=== PATIENT | male | born 1975 | race African-American/Black ===

== ENCOUNTER 2016-07-03 20:34 | Inpatient (IN) | payer OTHER ==
[~2016-07-03] VITALS: Ht 177.8 cm; Wt 98.2 kg
[~2016-07-03 20:34] MED LIST: AMLO-147 PO; CLON-379 PO; FURO-109 PO; MINO2.5T16 PO
[2016-07-03 21:15] VITALS: TEMP 98.1
[2016-07-03 21:28] LABS: ADD SCAN DIFF NO
[2016-07-03 21:30] LABS: ABNORMAL IP MESSAGE 1; HEMATOCRIT 33.6 % (42.0-52.0); HEMOGLOBIN 10.9 g/dl (14.0-18.0); MEAN CORPUSCULAR HEMOGLOBIN 28.3 pg (29.0-33.0); MEAN CORPUSCULAR HGB CONC 32.4 g/dl (32.0-37.0); MEAN CORPUSCULAR VOLUME 87.3 fl (82.0-101.0); PLATELET COUNT 76 10^3/UL (140-415); RED BLOOD COUNT 3.85 10^6/ul (4.70-6.10); RED CELL DISTRIBUTION WIDTH 18.3 % (11.5-14.5); WHITE BLOOD COUNT 11.7 10^3/ul (4.8-10.8)
[2016-07-03] MEDS ORDERED: FUROSEMIDE 40 MG INJ IV ONE (21:30)
[2016-07-03] MEDS ORDERED: METOPROLOL 100 MG TAB PO ONE (21:30)
--- NOTE | 2016-07-03 22:11 | RADRPT ---
PROCEDURE: XR Chest. CLINICAL INDICATION: Abdominal pain TECHNIQUE: AP view of the chest was obtained. COMPARISON: 03/11/2016 FINDINGS: Cardiac silhouette size is within normal limits. Thoracic aorta is tortuous. The lungs are clear. No pleural effusion or pneumothorax is identified. The visualized osseous structures are unremark able. IMPRESSION: No evidence of active cardiopulmonary disease. RPTAT: HESO .Tylor Rico MD, MD Date Time Electronically viewed and signed by .Tylor Rico MD, on 07/03/2016 22:10 .O/
[2016-07-03 22:12] LABS: ALBUMIN 3.3 g/dl (3.3-4.9)
[2016-07-03 22:13] LABS: POTASSIUM 3.4 mmol/L (3.5-5.1)
[2016-07-03 22:15] LABS: BILIRUBIN,INDIRECT 0.5 mg/dl (0-1.1); BILIRUBIN,TOTAL 0.5 mg/dl (0.2-1.3); CREATININE 7.72 mg/dl (0.61-1.24)
[2016-07-03 22:16] LABS: CALCIUM 8.1 mg/dl (8.4-10.2); TOTAL PROTEIN 6.6 g/dl (6.1-8.1)
[2016-07-03 22:40] LABS: TROPONIN-I 0.32 ng/ml (0.00-0.12)
[2016-07-03] MEDS ORDERED: ASPIRIN 325 MG TAB PO ONE (23:00)
[2016-07-03] MEDS ORDERED: ENALAPRILAT 1.25 MG INJ IV ONE (23:30)
[2016-07-03] MEDS ORDERED: NITROGLYCERIN (SL) 0.4 MG TAB SL ONE (23:30)
[2016-07-03] MEDS ORDERED: POTASSIUM CHLORIDE (SR) 20 MEQ TAB PO STA (23:31)
--- NOTE | 2016-07-03 23:33 | ERD ---
ER Documentation Chief Complaint Date/Time DATE: 07/03/16 TIME: 23:22 Chief Complaint hypertension, blurry of vision x 1 week, headaches x 3 days, blood in urine HPI 41-year-old man complains of gradual onset headache, and recent blurry vision with intermittent hematuria. Patient has a long history of poorly controlled hypertension and has been noncompliant with his medications. Patient denies slurred speech, no weakness in his arms or legs, no chest pain or shortness of breath, no abdominal pain, no vomiting or diarrhea. Patient states she has been out of his medications for 2-3 weeks, and states he has had recent increasing lower extremity edema. Patient denies exertional chest pain or claudication. Patient states he normally has headaches with blood pressure elevation. ROS All systems reviewed and are negative except as per history of present illness. Medications Home Meds Reported Medications Clonidine Hcl* (Clonidine Hcl*) 0.1 Mg Tab, 0.1 MG PO TID Y for ELEVATED BLOOD PRESSURE, TAB 03/11/16 Amlodipine Besylate* (Amlodipine Besylate*) 10 Mg Tablet, 10 MG PO DAILY, #30 TAB 03/11/16 Discontinued Reported Medications Minoxidil* (Lonitin*) 2.5 Mg Tab, 2.5 MG PO BID, TAB 03/11/16 Discontinued Scripts Furosemide* (Lasix*) 40 Mg Tablet, 40 MG PO DAILY for 5 Days, TAB Prov:MARIO SNOW MD 03/11/16 Allergies Allergies: Coded Allergies: No Known Allergy (Unverified , 07/03/16) PMhx/Soc History of hypertension, tobacco smoke Medical and Surgical Hx: pt denies Surgical Hx History of Surgery: No Anesthesia Reaction: No Hx Neurological Disorder: No Hx Respiratory Disorders: No Hx Cardiac Disorders: Yes (htn) Hx Psychiatric Problems: No Hx Miscellaneous Medical Probl: Yes (chronic kidney disease) Hx Alcohol Use: No Hx Substance Use: No Hx Tobacco Use: Yes (3 cig/day) Smoking Status: Current every day smoker FmHx Family History: No diabetes Physical Exam Vitals Vital Signs Date Time Temp Pulse Resp B/P Pulse Ox O2 Delivery O2 Flow Rate FiO2 07/03/16 23:48 82 183/111 07/03/16 23:00 92 20 213/173 98 07/03/16 22:16 110 18 232/178 97 Room Air 07/03/16 21:15 98.1 120 20 224/175 98 Room Air 07/03/16 20:37 98.6 129 20 271/176 98 Physical Exam GENERAL: Well-developed, well-nourished, well-hydrated, in no apparent distress , looks nontoxic in appearance HEENT: Moist mucous membranes, pink conjunctiva, no cervical spine tenderness or step-off deformities, no goiter, no jaundice or icterus, extraocular movements intact without pain. No submandibular induration, and no pharyngeal erythema NEURO: Alert and oriented 3, cranial nerves II through XII intact bilaterally, pupils equal round reactive to light, no focal deficits or facial asymmetry, sensation intact distally Strength 5/5 in upper and lower extremities bilaterally CARDIAC: Tachycardic and regular, no murmurs rubs or gallops LUNGS: Clear bilaterally no wheezing crackles or stridor ABDOMEN: Soft nontender, no guarding, no rigidity, no rebound, no psoas sign no obturator sign. Normoactive bowel sounds SKIN: Warm and dry to touch, no abrasions, contusions, or hematomas, no lacerations, no ecchymosis, no target lesions, and without ulcers EXTREMITIES: 1+ pitting edema in the lower extremities bilaterally, calves are bilaterally symmetrical, no Homans sign, no popliteal cord sign. Distal pulses equal and bilateral PSYCH: Normal affect without agitation or irritability Result Diagram: 07/03/16 2100 07/03/16 2100 Results 24 hrs Laboratory Tests Test 07/03/16 21:00 White Blood Count 11.710^3/ul Red Blood Count 3.8510^6/ul Hemoglobin 10.9g/dl Hematocrit 33.6% Mean Corpuscular Volume 87.3fl Mean Corpuscular Hemoglobin 28.3pg Mean Corpuscular Hemoglobin Concent 32.4g/dl Red Cell Distribution Width 18.3% Platelet Count 7610^3/UL Mean Platelet Volume fl Neutrophils % 76.0% Lymphocytes % 11.0% Monocytes % 10.0% Eosinophils % 2.0% Basophils % 1.0% Nucleated Red Blood Cells % 1.0/100WBC Neutrophils # 8.910^3/ul Lymphocytes # 1.310^3/ul Monocytes # 1.210^3/ul Eosinophils # 0.210^3/ul Basophils # 0.110^3/ul Differential Comment MANUAL DIFF Platelet Estimate PLT APPEAR DECREASED Anisocytosis 1+ Ovalocytes FEW Sodium Level 137mmol/L Potassium Level 3.4mmol/L Chloride Level 102mmol/L Carbon Dioxide Level 23mmol/L Anion Gap 15 Blood Urea Nitrogen 65mg/dl Creatinine 7.72mg/dl Glucose Level 108mg/dl Calcium Level 8.1mg/dl Total Bilirubin 0.5mg/dl Direct Bilirubin 0.00mg/dl Indirect Bilirubin 0.5mg/dl Aspartate Amino Transf (AST/SGOT) 59IU/L Alanine Aminotransferase (ALT/SGPT) 42IU/L Alkaline Phosphatase 71IU/L Troponin I 0.320ng/ml Total Protein 6.6g/dl Albumin 3.3g/dl Globulin 3.30g/dl Albumin/Globulin Ratio 1.00 Lipase 172U/L Current Medications Medications (Trade) Dose Ordered Sig/Carlos Route PRN Reason Start Time Stop Time Status Last Admin Dose Admin Metoprolol Tartrate (Lopressor) 100 mg ONCE ONCE PO 07/03/16 21:30 07/03/16 21:31 DC 07/03/16 21:34 Furosemide (Lasix) 40 mg ONCE ONCE IV 07/03/16 21:30 07/03/16 21:31 DC 07/03/16 21:34 Aspirin (Aspirin) 325 mg ONCE ONCE PO 07/03/16 23:00 07/03/16 23:01 DC 07/03/16 23:02 Enalaprilat (Vasotec Iv) 1.25 mg ONCE ONCE IV 07/03/16 23:30 07/03/16 23:31 DC 07/03/16 23:25 Nitroglycerin (Nitroglycerin (Sl Tab) 0.4 Mg) 2 tab ONCE ONCE SL 07/03/16 23:30 07/03/16 23:34 DC 07/03/16 23:37 Potassium Chloride (Klor-Con 20) 40 meq ONCE STAT PO 07/03/16 23:31 07/03/16 23:34 DC 07/03/16 23:38 Procedures/MDM IV line was established patient was placed on night monitor rhythm strip revealed a sinus tachycardia at 120 bpm with upright P and T waves. She was afebrile. EKG performed, read by me revealed a sinus tachycardia at 110 bpm, normal axis, narrow QRS complex, no concerning ST elevations or depressions, evidence of left ventricular hypertrophy in precordial leads and in lead I. One AP view of the chest performed, read by me reveals no acute infiltrates, normal mediastinum, sharp costophrenic and cardiac borders, no air under the diaphragm. Otherwise unremarkable chest x-ray. I administered metoprolol 100 mg p.o. for hypertension and tachycardia, and furosemide 40 mg IV 1. For continued hypertension patient received enalapril 1.25 mg IV. CBC revealed thrombocytopenia 76,000, electrolytes revealed hypokalemia and acute kidney injury with a BUN/creatinine of 65/7.7, liver function tests are normal, troponin positive at 0.3. Last year creatinine was 2.2. Cardiac critical Care: Time: 40 minutes, this was time separate from other procedures. Treatments/Evaluations: Close monitoring and treatment of unstable vital signs, cardiorespiratory, and neurologic status, while maintaining tight balance of fluid, respiratory, and cardiac interventions. Patient was also given nitroglycerin 0.4 mg sublingual 2 for continued hypertension. Patient's poorly controlled malignant hypertension has resulted in kidney injury , visual changes, headaches, and now a non-STEMI. Patient will be admitted to telemetry setting for continued medical management and cardiology consultation. Departure Diagnosis: Primary Impression: Hypertension Hypertension type: essential hypertension Qualified Code: I10 - Essential hypertension Additional Impressions: Hypertensive crisis Non-STEMI (non-ST elevated myocardial infarction) Acute kidney injury Hypertensive retinopathy Laterality: bilateral Qualified Code: H35.033 - Hypertensive retinopathy, bilateral Hypokalemia Condition: Serious MARIYA OSULLIVAN MD Jul 03, 2016 23:33
[2016-07-04] VITALS (9 sets, daily range): BP systolic 142–168; BP diastolic 91–109; PULSE 80–98; RESP 15–18; Ht 177.8 cm; Wt 98.2 kg
[2016-07-04 00:22] LABS: BASOPHIL # 0.1 10^3/ul (0.0-0.1); EOSINOPHILS # 0.2 10^3/ul (0.0-0.5); LYMPHOCYTES # 1.3 10^3/ul (0.8-2.9); MONOCYTE # 1.2 10^3/ul (0.3-0.9); NEUTROPHIL # 8.9 10^3/ul (1.6-7.5)
[2016-07-04 00:23] LABS: PLATELET ESTIMATE PLT APPEAR DECREASED
[2016-07-04 00:24] LABS: ANISOCYTOSIS 1+; OVALOCYTES FEW
[2016-07-04] MEDS ORDERED: hydrALAzine 20 MG INJ IV ONE (01:30)
[2016-07-04] MEDS ORDERED: NACL 0.9% 3 ML SYG IV SCH (06:30)
[2016-07-04] MEDS ORDERED: ALBUTEROL/IPRATROPIUM (NEB) 3 ML AMP HHN PRN (06:30)
[2016-07-04] MEDS ORDERED: ONDANSETRON 4 MG INJ IV PRN (06:30)
[2016-07-04] MEDS ORDERED: ACETAMINOPHEN 325 MG TAB PO PRN (06:30)
[2016-07-04] MEDS ORDERED: NITROGLYCERIN (SL) 0.4 MG TAB SL PRN (06:30)
--- NOTE | 2016-07-04 07:14 | HP ---
DATE OF ADMISSION: 07/03/2016 CHIEF COMPLAINT: Headache. HISTORY OF PRESENT ILLNESS: The patient is a 41-year-old male with history of hypertension and pumpman alec kidney disease who presented to the emergency department with a chief complaint of headache, int ermittent blurry vision. He said symptom have been going on for a few days, worsening over the past 2 days. He also reported seeing blood in his urine. He denied any chest pain, shortness of breath , fever, chills, nausea, or vomiting. When he presented to the ER, his blood pressure was severely elevated at 217/176 with a heart rate of 129. Laboratory value shows potassium of 3.4, BUN 65, crea tinine 7.7. Troponin was 0.32. WBC 11.7, hemoglobin 10.9, and platelet count 76. The patient was here in the ER three months ago, in March of 2016, and was complaining of lower extremity swellin g. At that time, his creatinine was only 2.1. When he was in the ER today, a chest x-ray was done which showed no active cardiopulmonary disease, and EKG shows no ST-T wave abnormalities. No head C T was done. He was given Lasix 40 mg IV, Lopressor 100 mg oral, Vasotec, 20 mg of IV hydralazine, a spirin, and nitroglycerin which brought his blood pressure down to around 185/110. Note that the linda folres has not been compliant with his blood pressure medications. REVIEW OF SYSTEMS: A 12-point review was performed and is negative except as mentioned in HPI. PAST MEDICAL HISTORY: As per HPI. PAST SURGICAL HISTORY: Denies. SOCIAL HISTORY: Smokes about 3 to 5 cigarettes per day. ALLERGIES: NO KNOWN DRUG ALLERGIES. HOME MEDICATION: 1. Clonidine. 2. Norvasc. PHYSICAL EXAMINATION: VITAL SIGNS: Currently, blood pressure 183/111, heart rate 82, respiratory rate 20, temperature 98. 1, oxygen saturation 98% on room air. GENERAL: The patient lying in bed, slightly sleepy but arousable, answering questions appropriately . HEENT: No obvious head deformity. Pupils reactive to light. Extraocular muscles intact. CARDIOVASCULAR: Regular rate and rhythm. No extra sounds. LUNGS: Clear. ABDOMEN: Soft, obese, nontender, nondistended. EXTREMITIES: Positive for bilateral lower extremity edema. NEUROLOGIC: No focal deficits. LABORATORY: Pertinent positive results as mentioned in the HPI. IMAGING: Chest x-ray with no active disease IMPRESSION: 1. Hypertensive emergency. 2. Headache/blurry vision, secondary to above. 3. Stage V chronic kidney disease. 4. Normocytic anemia, likely secondary to anemia of chronic disease. 5. Thrombocytopenia. 6. Elevated troponin, likely demand ischemia. 7. Leukocytosis, likely stress-induced. PLAN: Continue telemetry monitoring. I will order a head CT for him given his presentation of head ache and severely elevated blood pressure. We will trend his troponin. We will avoid nephrotoxins and renally dose all medications. We will obtain a renal ultrasound and place a nephrology consult. 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 As far as his hematu arabella is concerned, it could be result of his severely elevated blood pressure. We are going to obtai n a renal ultrasound which might show some abnormality in his bladder. If symptoms continue, we emmett l obtain a CT scan of his pelvis as well as place a urology consult. We will trend his troponin and consider cardiology consult, but his elevated blood pressure is likely secondary to demand ischemia as well as his worsening kidney disease. Further workup and management per clinical course. Dictated By: BINA NELSON/DIRIS Conf#: [id number] DID#: [id number]
[2016-07-04] MEDS ORDERED: HEPARIN 5,000 UNIT/0.5 ML VIAL SC SCH (09:00)
[2016-07-04] MEDS: ASPIRIN 81 MG TAB PO SCH (09:09)
[2016-07-04] MEDS: AMLODIPINE 10 MG TAB PO SCH (09:10)
[2016-07-04 10:42] LABS: ADD SCAN DIFF NO
[2016-07-04 10:46] LABS: ABNORMAL IP MESSAGE 1; BASOPHILS % 0.3 % (0.0-2.0); EOSINOPHILS # 0.1 10^3/ul (0.0-0.5); EOSINOPHILS % 0.9 % (0.0-7.0); HEMATOCRIT 31.8 % (42.0-52.0); HEMOGLOBIN 10.3 g/dl (14.0-18.0); LYMPHOCYTES # 1.6 10^3/ul (0.8-2.9); MEAN CORPUSCULAR HEMOGLOBIN 28.3 pg (29.0-33.0); MEAN CORPUSCULAR HGB CONC 32.4 g/dl (32.0-37.0); MEAN CORPUSCULAR VOLUME 87.4 fl (82.0-101.0); MEAN PLATELET VOLUME 11.5 fl (7.4-10.4); MONOCYTE # 1.3 10^3/ul (0.3-0.9); MONOCYTES % 11.9 % (0.0-11.0); NEUTROPHIL # 7.5 10^3/ul (1.6-7.5); NEUTROPHILS % 71.5 % (39.0-77.0); PLATELET COUNT 84 10^3/UL (140-415); RED BLOOD COUNT 3.64 10^6/ul (4.70-6.10); RED CELL DISTRIBUTION WIDTH 18.9 % (11.5-14.5); WHITE BLOOD COUNT 10.5 10^3/ul (4.8-10.8)
[2016-07-04 11:02] LABS: ALBUMIN 2.8 g/dl (3.3-4.9)
[2016-07-04 11:03] LABS: POTASSIUM 3.6 mmol/L (3.5-5.1)
[2016-07-04 11:05] LABS: BILIRUBIN,INDIRECT 0.5 mg/dl (0-1.1); BILIRUBIN,TOTAL 0.5 mg/dl (0.2-1.3); CALCIUM 7.8 mg/dl (8.4-10.2); CREATININE 7.66 mg/dl (0.61-1.24); TOTAL PROTEIN 5.6 g/dl (6.1-8.1)
[2016-07-04 11:06] LABS: CHOL/HDL RATIO 3.4 RATIO
[2016-07-04 11:18] LABS: CK-MB 1.65 ng/ml (0.0-2.4); TROPONIN-I 0.223 ng/ml (0.00-0.12)
[2016-07-04 12:42] LABS: CK-MB 1.93 ng/ml (0.0-2.4); TROPONIN-I 0.223 ng/ml (0.00-0.12)
[2016-07-04] MEDS ORDERED: HEPARIN 1000 UNITS/ML 10 ML INJ IV PRN (14:30)
[2016-07-04] MEDS ORDERED: HEPARIN 1000 UNITS/ML 10 ML INJ IV ONE (14:30)
[2016-07-04] MEDS ORDERED: HEPARIN 25000 UNITS/250 ML 250 ML IV SCH (14:30)
[2016-07-04 14:37] LABS: ADD SCAN DIFF NO
[2016-07-04 14:38] LABS: ABNORMAL IP MESSAGE 1; BASOPHILS % 0.3 % (0.0-2.0); EOSINOPHILS # 0.1 10^3/ul (0.0-0.5); EOSINOPHILS % 0.9 % (0.0-7.0); HEMATOCRIT 30.3 % (42.0-52.0); HEMOGLOBIN 10.3 g/dl (14.0-18.0); LYMPHOCYTES # 1.7 10^3/ul (0.8-2.9); MEAN CORPUSCULAR HEMOGLOBIN 29.7 pg (29.0-33.0); MEAN CORPUSCULAR VOLUME 87.3 fl (82.0-101.0); MONOCYTE # 1.2 10^3/ul (0.3-0.9); MONOCYTES % 11.9 % (0.0-11.0); NEUTROPHIL # 7.1 10^3/ul (1.6-7.5); NEUTROPHILS % 69.4 % (39.0-77.0); RED BLOOD COUNT 3.47 10^6/ul (4.70-6.10); WHITE BLOOD COUNT 10.2 10^3/ul (4.8-10.8)
[2016-07-04 14:48] LABS: PLATELET COUNT 86 10^3/UL (140-415)
[2016-07-04 14:49] LABS: INR 0.95; PROTIME 12.7 Sec (12.2-14.2)
--- NOTE | 2016-07-04 15:25 | PN ---
Date/Time of Note Date/Time of Note DATE: 07/04/16 TIME: 15:22 Assessment/Plan VTE Prophylaxis VTE Prophylaxis Intervention: heparin Lines/Catheters IV Catheter Type (from [facility]): Sal[facility] Urinary Cath still in place: No Assessment/Plan Chief Complaint/Hosp Course Assessment and plan 1. Non-ST elevated myocardial infarction. Noted with elevated troponins. On heparin drip for now. Sack Lifter consulted. Continue telemetry monitoring. Echo pending 2. Hypertensive emergency. Antihypertensives started. Will adjust as needed. Improved at this time. Of note it is questionable for patient compliance on home antihypertensive regimen. Will follow up 3. Stage V CKD. Patient reports no history of renal dysfunction. [employer] Farm[employer] following. Likely hypertensive nephrosclerosis. We will follow- up renal panel 4. Anemia of chronic disease. H&H remained stable at present. Will monitor DISPO.PLAN: cont on heparin drip for now. Await cardiolgoy recs Discussed plan of care with Dr. Mcclain Problems: Subjective 24 Hr Interval Summary Free Text/Dictation comfortable at present. denies any chest pain at this time. Exam/Review of Systems Vital Signs Vitals Vital Signs Date Time Temp Pulse Resp B/P Pulse Ox O2 Delivery O2 Flow Rate FiO2 07/04/16 12:07 95 07/04/16 11:38 98.1 18 142/93 96 07/04/16 06:06 Room Air Intake and Output 07/03/16 07/03/16 07/04/16 15:00 23:00 07:00 Intake Total 200 ml Output Total 600 ml Balance -400 ml Exam Constitutional: alert, oriented Psych: nl mood/affect Head: normocephalic Eyes: nl conjunctiva Neck: supple, non-tender, No jvd Respiratory: clear to auscultation, normal air movement Cardiovascular: regular rate and rhythm Gastrointestinal: soft, non-tender Musculoskeletal: nl extremities to inspection, nl gait and stance Extremities: normal pulses Neurological: nl mental status, nl speech, nl strength Skin: nl turgor, No rash or lesions Results Result Diagram: 07/04/16 1425 07/04/16 1031 Results 24 hrs Laboratory Tests Test 07/03/16 21:00 07/04/16 10:31 07/04/16 12:05 07/04/16 14:25 White Blood Count 11.7 H 10.5 10.2 Red Blood Count 3.85 L 3.64 L 3.47 L Hemoglobin 10.9 L 10.3 L 10.3 L Hematocrit 33.6 L 31.8 L 30.3 L Mean Corpuscular Volume 87.3 87.4 87.3 Mean Corpuscular Hemoglobin 28.3 L 28.3 L 29.7 Mean Corpuscular Hemoglobin Concent 32.4 32.4 34.0 Red Cell Distribution Width 18.3 H 18.9 H 19.0 H Platelet Count 76 L 84 L 86 L Mean Platelet Volume 11.5 #H Neutrophils % 76.0 71.5 69.4 Lymphocytes % 11.0 L 15.0 17.0 Monocytes % 10.0 11.9 H 11.9 H Eosinophils % 2.0 0.9 0.9 Basophils % 1.0 0.3 0.3 Nucleated Red Blood Cells % 1.0 H 0.0 0.0 Neutrophils # 8.9 H 7.5 7.1 Lymphocytes # 1.3 1.6 1.7 Monocytes # 1.2 H 1.3 H 1.2 H Eosinophils # 0.2 0.1 0.1 Basophils # 0.1 0.0 0.0 Differential Comment MANUAL DIFF Platelet Estimate PLT APPEAR DECREASED Anisocytosis 1+ Ovalocytes FEW Sodium Level 137 133 L Potassium Level 3.4 L 3.6 Chloride Level 102 104 Carbon Dioxide Level 23 25 Anion Gap 15 8 Blood Urea Nitrogen 65 H 69 H Creatinine 7.72 H 7.66 H Glucose Level 108 110 Calcium Level 8.1 L 7.8 L Total Bilirubin 0.5 0.5 Direct Bilirubin 0.00 0.00 Indirect Bilirubin 0.5 0.5 Aspartate Amino Transf (AST/SGOT) 59 H 40 Alanine Aminotransferase (ALT/SGPT) 42 39 Alkaline Phosphatase 71 65 Troponin I 0.320 *H 0.223 *H 0.223 *H Total Protein 6.6 5.6 #L Albumin 3.3 2.8 L Globulin 3.30 H 2.80 Albumin/Globulin Ratio 1.00 1.00 Lipase 172 Nucleated Red Blood Cells # 0.0 0.0 Hemoglobin A1c 4.8 Magnesium Level 2.0 Creatine Kinase 723 H 674 H Creatine Kinase Index 0.2 0.3 Creatinine Kinase MB (Mass) 1.65 1.93 Triglycerides Level 95 Cholesterol Level 164 LDL Cholesterol, Calculated 97 HDL Cholesterol 48 Cholesterol/HDL Ratio 3.4 Prothrombin Time 12.7 Prothrombin Time Ratio 1.0 INR International Normalized Ratio 0.95 Activated Partial Thromboplast Time 27.0 Medications Medications Current Medications Ondansetron HCl (Zofran Inj) 4 mg Q6H PRN IV NAUSEA AND/OR VOMITING; Start 07/04 at 06:30 Aspirin (Aspirin) 81 mg DAILY PO Last administered on 07/04/16 09:09; Admin Dose 81 MG; Start 07/04/16 at 09:00 Nitroglycerin (Nitroglycerin (Sl Tab) 0.4 Mg) 1 tab Q5M PRN SL CHEST PAIN; Start 07/04/16 at 06:30 Acetaminophen (Tylenol Tab) 650 mg Q6H PRN PO PAIN LEVEL 1-3 OR FEVER; Start at 06:30 Morphine Sulfate (morphine) 2 mg Q4H PRN IV PAIN LEVEL 7-10; Start 07/04/16 at 06:30 Amlodipine Besylate (Norvasc) 10 mg DAILY PO Last administered on 07/04/16 09: 10; Admin Dose 10 MG; Start 07/04/16 at 09:00 Clonidine (Catapres) 0.1 mg TID PRN PO ELEVATED BLOOD PRESSURE>150; Start at 06:30 EDEPA MADSEN Jul 04, 2016 15:25
--- NOTE | 2016-07-04 17:49 | CONS ---
Date/Time of Note Date/Time of Note DATE: 07/04/16 TIME: 17:39 Assessment/Plan Assessment/Plan Chief Complaint/Hosp Course Assessment: Hypertensive emergency - secondary to stopping anti-hypertensive medications ( especially rebound effect of clonidine), blood pressures now improved NSTEMI - likely type 2 in setting of hypertensive emergency and renal failure Acute kidney injury on chronic kidney disease - per nephrology Thrombocytopenia - unclear etiology, ? liver disease History of alcohol abuse Tobacco abuse Medical noncompliance Recommendations: -obtain transthoracic echocardiogram -discontinue heparin drip -continue aspirin 81mg daily for now, monitor platelets -carvedilol 6.25mg BID, up titrate as needed -continue amlodipine 10mg daily -stay off clonidine Problems: Consultation Date/Type/Reason Admit Date/Time Jul 03, 2016 at 23:09 Type of Consultation: Cardiology Reason for Consultation elevated troponin Hx of Present Illness The patient is a 41 year-old who presents with a one week history of headache and blurry vision. He was on amlodipine and clonidine for hypertension, but self -discontinued the medications one week ago because he did not believe they were effective. He denies chest pain or shortness of breath. On presentation, his blood pressure was elevated at 271/176. His troponin is mildly elevated 0.32 and creatinine is elevated at 7.7. 14 point review of systems negative other than per HPI. Past Medical History Hypertension Chronic kidney disease Past Surgical History Past Surgical Hx: no surgical history Family History Significant Family History: heart disease, diabetes, hypertension Social History Alcohol Use: sober (previously heavy, quit one year ago) Smoking Status: Current every day smoker Drug Use: none Exam/Review of Systems Vital Signs Vitals Vital Signs Date Time Temp Pulse Resp B/P Pulse Ox O2 Delivery O2 Flow Rate FiO2 07/04/16 16:09 97.4 90 18 149/91 97 07/04/16 06:06 Room Air Intake and Output 07/03/16 07/03/16 07/04/16 15:00 23:00 07:00 Intake Total 200 ml Output Total 600 ml Balance -400 ml Exam Constitutional: alert, well developed Psych: nl mood/affect, no complaints Head: atraumatic, normocephalic Eyes: nl conjunctiva, nl lids ENMT: nl external ears & nose, nl nasal mucosa & septum Neck: non-tender, supple Respiratory: clear to auscultation, normal air movement Cardiovascular: regular rate and rhythm Gastrointestinal: non-tender, soft Musculoskeletal: nl extremities to inspection Extremities: No clubbing, No cyanosis, No edema Neurological: nl mental status, nl speech Results Result Diagram: 07/04/16 1425 07/04/16 1031 Results 24 hrs Laboratory Tests Test 07/03/16 21:00 07/04/16 10:31 07/04/16 12:05 07/04/16 14:25 White Blood Count 11.7 H 10.5 10.2 Red Blood Count 3.85 L 3.64 L 3.47 L Hemoglobin 10.9 L 10.3 L 10.3 L Hematocrit 33.6 L 31.8 L 30.3 L Mean Corpuscular Volume 87.3 87.4 87.3 Mean Corpuscular Hemoglobin 28.3 L 28.3 L 29.7 Mean Corpuscular Hemoglobin Concent 32.4 32.4 34.0 Red Cell Distribution Width 18.3 H 18.9 H 19.0 H Platelet Count 76 L 84 L 86 L Mean Platelet Volume 11.5 #H Neutrophils % 76.0 71.5 69.4 Lymphocytes % 11.0 L 15.0 17.0 Monocytes % 10.0 11.9 H 11.9 H Eosinophils % 2.0 0.9 0.9 Basophils % 1.0 0.3 0.3 Nucleated Red Blood Cells % 1.0 H 0.0 0.0 Neutrophils # 8.9 H 7.5 7.1 Lymphocytes # 1.3 1.6 1.7 Monocytes # 1.2 H 1.3 H 1.2 H Eosinophils # 0.2 0.1 0.1 Basophils # 0.1 0.0 0.0 Differential Comment MANUAL DIFF Platelet Estimate PLT APPEAR DECREASED Anisocytosis 1+ Ovalocytes FEW Sodium Level 137 133 L Potassium Level 3.4 L 3.6 Chloride Level 102 104 Carbon Dioxide Level 23 25 Anion Gap 15 8 Blood Urea Nitrogen 65 H 69 H Creatinine 7.72 H 7.66 H Glucose Level 108 110 Calcium Level 8.1 L 7.8 L Total Bilirubin 0.5 0.5 Direct Bilirubin 0.00 0.00 Indirect Bilirubin 0.5 0.5 Aspartate Amino Transf (AST/SGOT) 59 H 40 Alanine Aminotransferase (ALT/SGPT) 42 39 Alkaline Phosphatase 71 65 Troponin I 0.320 *H 0.223 *H 0.223 *H Total Protein 6.6 5.6 #L Albumin 3.3 2.8 L Globulin 3.30 H 2.80 Albumin/Globulin Ratio 1.00 1.00 Lipase 172 Nucleated Red Blood Cells # 0.0 0.0 Hemoglobin A1c 4.8 Magnesium Level 2.0 Creatine Kinase 723 H 674 H Creatine Kinase Index 0.2 0.3 Creatinine Kinase MB (Mass) 1.65 1.93 Triglycerides Level 95 Cholesterol Level 164 LDL Cholesterol, Calculated 97 HDL Cholesterol 48 Cholesterol/HDL Ratio 3.4 Prothrombin Time 12.7 Prothrombin Time Ratio 1.0 INR International Normalized Ratio 0.95 Activated Partial Thromboplast Time 27.0 Medications Medications Current Medications Ondansetron HCl (Zofran Inj) 4 mg Q6H PRN IV NAUSEA AND/OR VOMITING; Start 07/04 at 06:30 Aspirin (Aspirin) 81 mg DAILY PO Last administered on 07/04/16 09:09; Admin Dose 81 MG; Start 07/04/16 at 09:00 Nitroglycerin (Nitroglycerin (Sl Tab) 0.4 Mg) 1 tab Q5M PRN SL CHEST PAIN; Start 07/04/16 at 06:30 Acetaminophen (Tylenol Tab) 650 mg Q6H PRN PO PAIN LEVEL 1-3 OR FEVER; Start at 06:30 Morphine Sulfate (morphine) 2 mg Q4H PRN IV PAIN LEVEL 7-10; Start 07/04/16 at 06:30 Amlodipine Besylate (Norvasc) 10 mg DAILY PO Last administered on 07/04/16 09: 10; Admin Dose 10 MG; Start 07/04/16 at 09:00 Clonidine (Catapres) 0.1 mg TID PRN PO ELEVATED BLOOD PRESSURE>150; Start at 06:30 ANTOINE ESPINOZA MD Jul 04, 2016 17:49
--- NOTE | 2016-07-04 20:00 | RADRPT ---
PROCEDURE: CT Head without contrast. CLINICAL INDICATION: headache TECHNIQUE: Continuous axial CT images were obtained from the base of skull to the vertex. No cont rast was administered. The calculated radiation dose measures 720 mGy centimeters. The CTDI measures 43 mGy COMPARISON: No prior studies are available for comparison. FINDINGS: There is patchy areas of low density through the bilateral cerebral hemispheres, involving the periv entricular and subcortical white matter. This appears abnormal for the patient's age. The ventricles are symmetric and normal in size. There is no mass effect or midline shift. There i s no abnormal intra-axial or extra-axial fluid collection. There is no evidence of intracranial hem orrhage. The bony calvarium is intact. The orbital soft tissue contents are unremarkable. Paranasal sinuses appear clear IMPRESSION: Patchy areas of low density through the bilateral cerebral hemisphere periventricular and subcortica l white matter. The appearance is nonspecific, possibly reflecting a demyelinating or inflammatory process including multiple sclerosis or vasculitis, versus early onset prominent small vessel ischem ic change. MRI with contrast is recommended for evaluation. RPTAT: HBST . . .Bayron Le MD, MD Date Time Electronically viewed and signed by .Bayron Le MD, MD on 07/04/2016 19:59 .T/
[2016-07-05] VITALS (12 sets, daily range): BP systolic 137–157; BP diastolic 87–109; PULSE 89–101; RESP 18–20
[2016-07-05 07:33] LABS: ADD SCAN DIFF NO
[2016-07-05 07:34] LABS: ABNORMAL IP MESSAGE 1; BASOPHILS % 0.3 % (0.0-2.0); EOSINOPHILS # 0.2 10^3/ul (0.0-0.5); EOSINOPHILS % 1.2 % (0.0-7.0); HEMOGLOBIN 10.7 g/dl (14.0-18.0); LYMPHOCYTES # 1.9 10^3/ul (0.8-2.9); LYMPHOCYTES % 15.4 % (15.0-51.0); MEAN CORPUSCULAR HEMOGLOBIN 29.4 pg (29.0-33.0); MEAN CORPUSCULAR HGB CONC 33.4 g/dl (32.0-37.0); MEAN CORPUSCULAR VOLUME 87.9 fl (82.0-101.0); MONOCYTE # 1.5 10^3/ul (0.3-0.9); MONOCYTES % 12.2 % (0.0-11.0); NEUTROPHIL # 8.4 10^3/ul (1.6-7.5); NEUTROPHILS % 70.3 % (39.0-77.0); PLATELET COUNT 83 10^3/UL (140-415); RED BLOOD COUNT 3.64 10^6/ul (4.70-6.10); RED CELL DISTRIBUTION WIDTH 18.6 % (11.5-14.5)
[2016-07-05 07:45] LABS: POTASSIUM 3.8 mmol/L (3.5-5.1)
[2016-07-05 07:48] LABS: CREATININE 8.18 mg/dl (0.61-1.24)
[2016-07-05 07:49] LABS: CALCIUM 7.9 mg/dl (8.4-10.2); PHOSPHORUS 6.8 mg/dl (2.5-4.9)
[2016-07-05] MEDS: ASPIRIN 81 MG TAB PO SCH (08:45)
[2016-07-05] MEDS: AMLODIPINE 10 MG TAB PO SCH (08:46)
--- NOTE | 2016-07-05 10:12 | CONS ---
Date/Time of Note Date/Time of Note DATE: 07/05/16 TIME: 10:08 Assessment/Plan Assessment/Plan Chief Complaint/Hosp Course - CHRONIC KIDNEY DISEASE III - ACUTE KIDNEY INJURY - HYPERTENSION EMERGENCY - HTN NEPHROSCLEROSIS - THROMBOCYTOPENIA - HEMATURIA - +/- RHABDO - LOW ALBUMIN PLAN: His baseline creatinine has been ~ 2 range ( Latest FEB 2016 ) We had made a lot of changes as out patient trying to control his BP but he has not been complaint to meds & lowering his BP always made him tired. He was urged to see a Shelter Advocate as out patient An Ultrasound was negative for possible EMMA ( Renal Artery Stenosis ) Start IV Fluid for now 0.9% @ 80 ml/hr Follow up with A renal Ultrasound BP control Follow up with the 2-D echo Follow up with total CKs Check Eosinophilia Check Estimated Proteinuria Problems: Consultation Date/Type/Reason Admit Date/Time Jul 03, 2016 at 23:09 Date of Consultation: Jul 05, 2016 Type of Consultation: NEPHROLOGY Reason for Consultation - ACUTE KIDNEY INJURY - CHRONIC KIDNEY DISEASE III Constitutional: improved Eyes: no complaints, visual change ENT: no complaints Respiratory: no complaints Cardiovascular: chest pain, no complaints Gastrointestinal: no complaints Genitourinary: no complaints Musculoskeletal: no complaints Skin: no complaints Neurologic: no complaints Psychological: nl mood/affect, no complaints Past Medical History - CKD III - HYPERTENSION Past Surgical History Past Surgical Hx: no surgical history Family History Significant Family History: no pertinent family hx Social History Alcohol Use: sober (previously heavy, quit one year ago) Smoking Status: Current every day smoker Drug Use: none Exam/Review of Systems Vital Signs Vitals Vital Signs Date Time Temp Pulse Resp B/P Pulse Ox O2 Delivery O2 Flow Rate FiO2 07/05/16 08:06 91 07/05/16 07:52 98.0 18 143/106 97 07/04/16 06:06 Room Air Intake and Output 07/04/16 07/04/16 07/05/16 15:00 23:00 07:00 Intake Total 480 ml 800 ml 720 ml Balance 480 ml 800 ml 720 ml Exam Constitutional: alert, oriented Psych: no complaints Head: normocephalic Neck: supple Respiratory: crackles/rales Cardiovascular: regular rate and rhythm, systolic murmur Gastrointestinal: soft Results Result Diagram: 07/05/16 0645 07/05/16 0645 Results 24 hrs Laboratory Tests Test 07/04/16 10:31 07/04/16 12:05 07/04/16 14:25 07/05/16 06:45 White Blood Count 10.5 10.2 12.0 H Red Blood Count 3.64 L 3.47 L 3.64 L Hemoglobin 10.3 L 10.3 L 10.7 L Hematocrit 31.8 L 30.3 L 32.0 L Mean Corpuscular Volume 87.4 87.3 87.9 Mean Corpuscular Hemoglobin 28.3 L 29.7 29.4 Mean Corpuscular Hemoglobin Concent 32.4 34.0 33.4 Red Cell Distribution Width 18.9 H 19.0 H 18.6 H Platelet Count 84 L 86 L 83 L Mean Platelet Volume 11.5 #H Neutrophils % 71.5 69.4 70.3 Lymphocytes % 15.0 17.0 15.4 Monocytes % 11.9 H 11.9 H 12.2 H Eosinophils % 0.9 0.9 1.2 Basophils % 0.3 0.3 0.3 Nucleated Red Blood Cells % 0.0 0.0 0.0 Neutrophils # 7.5 7.1 8.4 H Lymphocytes # 1.6 1.7 1.9 Monocytes # 1.3 H 1.2 H 1.5 H Eosinophils # 0.1 0.1 0.2 Basophils # 0.0 0.0 0.0 Nucleated Red Blood Cells # 0.0 0.0 0.0 Sodium Level 133 L 134 L Potassium Level 3.6 3.8 Chloride Level 104 100 Carbon Dioxide Level 25 23 Anion Gap 8 15 # Blood Urea Nitrogen 69 H 76 H Creatinine 7.66 H 8.18 H Glucose Level 110 96 Hemoglobin A1c 4.8 Calcium Level 7.8 L 7.9 L Magnesium Level 2.0 2.0 Total Bilirubin 0.5 Direct Bilirubin 0.00 Indirect Bilirubin 0.5 Aspartate Amino Transf (AST/SGOT) 40 Alanine Aminotransferase (ALT/SGPT) 39 Alkaline Phosphatase 65 Creatine Kinase 723 H 674 H Creatine Kinase Index 0.2 0.3 Creatinine Kinase MB (Mass) 1.65 1.93 Troponin I 0.223 *H 0.223 *H Total Protein 5.6 #L Albumin 2.8 L Globulin 2.80 Albumin/Globulin Ratio 1.00 Triglycerides Level 95 Cholesterol Level 164 LDL Cholesterol, Calculated 97 HDL Cholesterol 48 Cholesterol/HDL Ratio 3.4 Prothrombin Time 12.7 Prothrombin Time Ratio 1.0 INR International Normalized Ratio 0.95 Activated Partial Thromboplast Time 27.0 Phosphorus Level 6.8 H Medications Medications Current Medications Ondansetron HCl (Zofran Inj) 4 mg Q6H PRN IV NAUSEA AND/OR VOMITING; Start 07/04 at 06:30 Aspirin (Aspirin) 81 mg DAILY PO Last administered on 07/05/16 08:45; Admin Dose 81 MG; Start 07/04/16 at 09:00 Acetaminophen (Tylenol Tab) 650 mg Q6H PRN PO PAIN LEVEL 1-3 OR FEVER; Start at 06:30 Morphine Sulfate (morphine) 2 mg Q4H PRN IV PAIN LEVEL 7-10; Start 07/04/16 at 06:30 Amlodipine Besylate (Norvasc) 10 mg DAILY PO Last administered on 07/05/16 08: 46; Admin Dose 10 MG; Start 07/04/16 at 09:00 Carvedilol (Coreg) 6.25 mg BID PO Last administered on 07/05/16 08:46; Admin Dose 6.25 MG; Start 07/04/16 at 21:00 Hydralazine HCl (Apresoline) 10 mg Q4H PRN IV SBP>160; Start 07/04/16 at 18:00 MIKE ROLDAN MD Jul 05, 2016 10:12
[2016-07-05] MEDS ORDERED: SOD CHLORIDE 0.9% 1,000 ML IV SCH (10:30)
--- NOTE | 2016-07-05 12:33 | RADRPT ---
PROCEDURE: Renal US. CLINICAL INDICATION: Acute kidney injury. Hematuria. TECHNIQUE: Multiple sonographic images of the kidneys and urinary bladder were obtained. The imag es were reviewed on a PACS workstation. COMPARISON: No prior studies are available for comparison. FINDINGS: The right kidney measures 9.8 cm. The left kidney measures 10.0 cm. There is no renal mass. There is no hydronephrosis. There is no renal calculus. Renal parenchymal thickness is normal bilaterally. Both kidneys are hyperechoic consistent with med ical renal disease. The perirenal regions are normal with no fluid collection or mass. The urinary bladder is unremarkable. IMPRESSION: 1. Bilateral hyperechoic kidneys consistent with medical renal disease. 2. No hydronephrosis. 3. Otherwise normal renal ultrasound. RPTAT: QQ .Tk Salas MD, Date Time Electronically viewed and signed by .Tk Salas MD, on 07/05/2016 12:32 .R/
[2016-07-05] MEDS: hydrALAzine 20 MG INJ IV PRN (12:44)
--- NOTE | 2016-07-05 13:01 | PN ---
Date/Time of Note Date/Time of Note DATE: 07/05/16 TIME: 12:43 Assessment/Plan VTE Prophylaxis VTE Prophylaxis Intervention: heparin Lines/Catheters IV Catheter Type (from [facility]): Peripheral IV Urinary Cath still in place: No Assessment/Plan Assessment/Plan 1. Hypertensive emergency, still high on norvasc, change norvasc to procardia 2. Mildly elevated troponin, renal failure related, 3. Acute on chronic renal failure, follow up with nephrology 4. Thrombocytopenia - unclear etiology, abdominal u/s r/o splenomegaly 5. Abnormal findings on CT head, MRI 6. History of alcohol abuse 7. Tobacco abuse 8. DVT prophylaxis: heparin Subjective 24 Hr Interval Summary Free Text/Dictation still with blurring vision Exam/Review of Systems Vital Signs Vitals Vital Signs Date Time Temp Pulse Resp B/P Pulse Ox O2 Delivery O2 Flow Rate FiO2 07/05/16 12:06 93 07/05/16 11:46 97.8 18 157/109 96 07/04/16 06:06 Room Air Intake and Output 07/04/16 07/04/16 07/05/16 15:00 23:00 07:00 Intake Total 480 ml 800 ml 720 ml Balance 480 ml 800 ml 720 ml Exam Constitutional: alert, oriented, well developed Psych: nl mood/affect, no complaints Head: atraumatic, normocephalic Eyes: EOMI, nl conjunctiva, nl lids ENMT: nl external ears & nose, nl lips & teeth, nl nasal mucosa & septum Neck: non-tender, supple Respiratory: clear to auscultation, normal air movement, No congested cough, No crackles/rales, No diminished breath sounds, No intercostal retraction, No labored breathing, No other, No respirations, No tactile fremitus, No wheezing Cardiovascular: nl pulses, regular rate and rhythm, No S3, No S4, No bruits, No diastolic murmur, No edema, No gallop, No irregular rhythm, No jugular venous distention (JVD), No murmurs/extra sounds, No other, No rub, No systolic murmur Gastrointestinal: nl liver, spleen, non-tender, soft, No ascites, No bowel sounds, No distended, No firm, No hepatomegaly, No mass , No other, No rebound or guarding, No splenomegaly, No surgical scars, No tender Musculoskeletal: nl extremities to inspection Extremities: normal pulses, No calf tenderness, No clubbing, No cyanosis, No edema, No other, No palpable cord, No pitting pedal edema, No tenderness Neurological: 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4 Monocytes % 11.9 H 12.2 H Eosinophils % 0.9 1.2 Basophils % 0.3 0.3 Nucleated Red Blood Cells % 0.0 0.0 Neutrophils # 7.1 8.4 H Lymphocytes # 1.7 1.9 Monocytes # 1.2 H 1.5 H Eosinophils # 0.1 0.2 Basophils # 0.0 0.0 Nucleated Red Blood Cells # 0.0 0.0 Prothrombin Time 12.7 Prothrombin Time Ratio 1.0 INR International Normalized Ratio 0.95 Activated Partial Thromboplast Time 27.0 Sodium Level 134 L Potassium Level 3.8 Chloride Level 100 Carbon Dioxide Level 23 Anion Gap 15 # Blood Urea Nitrogen 76 H Creatinine 8.18 H Glucose Level 96 Calcium Level 7.9 L Phosphorus Level 6.8 H Magnesium Level 2.0 Medications Medications Current Medications Ondansetron HCl (Zofran Inj) 4 mg Q6H PRN IV NAUSEA AND/OR VOMITING; Start 07/04 at 06:30 Aspirin (Aspirin) 81 mg DAILY PO Last administered on 07/05/16t 08:45; Admin Dose 81 MG; Start 07/04/16 at 09:00 Acetaminophen (Tylenol Tab) 650 mg Q6H PRN PO PAIN LEVEL 1-3 OR FEVER; Start at 06:30 Morphine Sulfate (morphine) 2 mg Q4H PRN IV PAIN LEVEL 7-10; Start 07/04/16 at 06:30 Amlodipine Besylate (Norvasc) 10 mg DAILY PO Last administered on 07/05/16 08: 46; Admin Dose 10 MG; Start 07/04/16 at 09:00 Carvedilol (Coreg) 6.25 mg BID PO Last administered on 07/05/16 08:46; Admin Dose 6.25 MG; Start 07/04/16 at 21:00 Hydralazine HCl 10 mg 10 mg Q4H PRN IV SBP>160; Start 07/04/16 at 18:00 Sodium Chloride (NS) 1,000 ml @ 80 mls/hr [id number] IV Last administered on 11:03; Admin Dose 80 MLS/HR; Start 07/05/16 at 10:30 PAULIE DELANEY MD Jul 05, 2016 12:58
[2016-07-05] MEDS ORDERED: LORAZEPAM 2 MG INJ IV ONE (13:30)
[2016-07-05] MEDS: NIFEdipine (XL) 60 MG TAB PO SCH (13:30)
[2016-07-05 14:25] LABS: PROTEIN/CREAT RATIO 1.78 RATIO
--- NOTE | 2016-07-05 14:50 | RADRPT ---
Echocardiogram Report Patient Name: JONNIE SHUKLA Gender: Male Date: 1975 Study Date: 05-Jul-2016 Certified Executive Chef: Kristal Benavidez [facility] Location: 5550 Ref. Physician: BINA MARIN Quality: Good Procedures: Transthoracic echocardiogram with complete 2D, M-Mode, and doppler examination. Indications: NSTEMI. 2D/M Mode Doppler Measurement Value Normal Ranges Measurement Value Normal Ranges LVIDd 2D 4.9 3.5 - 5.6 cm AV Peak Rufino 1.2 m/sec LVIDs 2D 3.2 2.1 - 4.1 cm AV Peak PG 5.6 mmHg LVPWd 2D 1.3 0.6 - 1.1 cm LVOT Peak Rufino 0.8 m/sec IVSd 2D 1.3 0.6 - 1.1 cm LVOT Peak PG 2.7 mmHg AoR Diam 2D 3.3 2.0 - 3.7 cm MV E Peak Rufino 0.5 m/sec EDV 2D 114.6 cm3 MV A Peak Rufino 0.7 m/sec ESV 2D 33.7 cm3 MV E/A 0.7 LA Dimen 2D 2.7 2.3 - 4.0 cm MV Decel Time 128 msec MV Decel Sharkey 4 MV E/A 0.7 TR Peak Rufino 2.4 m/sec TR Peak PG 22.9 mmHg RVSP 26.0 mmHg Findings Left Ventricle: Normal left ventricular cavity size. Moderate concentric left ventricular hypertrophy. Moderate global left ventricular systolic dysfunction. Ejection fraction is visually estimated at 4045 %. Tissue Doppler/Mitral Doppler indices are consistent with impaired relaxation (Stage I diastolic dysfunction). Right Ventricle: Normal right ventricular size. Normal right ventricular systolic function. Left Atrium: The left atrium is normal in size. Right Atrium: The right atrium is normal in size. Mitral Valve: Normal appearance and function of the mitral valve with trace physiologic regurgitation. Aortic Valve: Normal appearance of the aortic valve. No significant aortic stenosis or insufficiency. Tricuspid Valve: Normal appearance of the tricuspid valve. Estimated peak PA systolic pressure 26 mmHg. There is trace tricuspid regurgitation. Pulmonic Valve: Pulmonic valve not well visualized. Pericardium: Normal pericardium with no significant pericardial effusion. Aorta: Normal aortic root. IVC: Normal size and normal respiratory collapse consistent with normal right atrial pressure. Conclusions 1.The left ventricle is normal in size with moderately reduced systolic function. There is global hypokinesis. 2.Estimated left ventricular ejection fraction of 40-45%. Electronically Signed By: Harshil Harrington 05-Jul-2016 14:49:48 -0700 Patient Name: JONNIE SHUKLA Study Date: 05-[id number]
--- NOTE | 2016-07-05 16:53 | CONS ---
Date/Time of Note Date/Time of Note DATE: 07/05/16 TIME: 16:47 Assessment/Plan Assessment/Plan Chief Complaint/Hosp Course Assessment: Hypertensive emergency - secondary to stopping anti-hypertensive medications ( especially rebound effect of clonidine), blood pressures now improved NSTEMI - likely type 2 in setting of hypertensive emergency and renal failure Cardiomyopathy, LVEF 40-45% - hypertensive vs ischemic heart disease Acute kidney injury on chronic kidney disease - per nephrology Thrombocytopenia - unclear etiology, ? liver disease History of alcohol abuse Tobacco abuse Medical noncompliance Recommendations: -echocardiogram showed LVEF 40-45% with global hypokinesis, moderate LVH -amlodipine changed to nifedipine XL 60mg daily, up titrate as needed -continue carvedilol 6.25mg BID, up titrate as needed -continue aspirin 81mg daily, monitor platelets -Lexiscan SPECT tomorrow Problems: Consultation Date/Type/Reason Admit Date/Time Jul 03, 2016 at 23:09 Initial Consult Date 07/05/16 Type of Consultation: Cardiology 24 HR Interval Summary Free Text/Dictation No acute events. Blood pressures improved. Detailed Summary Additional Comments 14 point review of systems without changes. Exam/Review of Systems Vital Signs Vitals Vital Signs Date Time Temp Pulse Resp B/P Pulse Ox O2 Delivery O2 Flow Rate FiO2 07/05/16 16:18 100 07/05/16 16:00 98.3 18 137/87 98 07/04/16 06:06 Room Air Intake and Output 07/04/16 07/04/16 07/05/16 14:59 22:59 06:59 Intake Total 480 ml 800 ml 720 ml Balance 480 ml 800 ml 720 ml Exam Constitutional: alert, well developed Psych: nl mood/affect, no complaints Head: atraumatic, normocephalic Eyes: nl conjunctiva, nl lids ENMT: nl external ears & nose, nl nasal mucosa & septum Neck: non-tender, supple Respiratory: clear to auscultation, normal air movement Cardiovascular: regular rate and rhythm Gastrointestinal: non-tender, soft Musculoskeletal: nl extremities to inspection Extremities: No clubbing, No cyanosis, No edema Neurological: nl mental status, nl speech Results Result Diagram: 07/05/16 0645 07/05/16 0645 Results 24 hrs Laboratory Tests Test 07/05/16 06:45 07/05/16 13:36 07/05/16 13:47 White Blood Count 12.0 H Red Blood Count 3.64 L Hemoglobin 10.7 L Hematocrit 32.0 L Mean Corpuscular Volume 87.9 Mean Corpuscular Hemoglobin 29.4 Mean Corpuscular Hemoglobin Concent 33.4 Red Cell Distribution Width 18.6 H Platelet Count 83 L Mean Platelet Volume Neutrophils % 70.3 Lymphocytes % 15.4 Monocytes % 12.2 H Eosinophils % 1.2 Basophils % 0.3 Nucleated Red Blood Cells % 0.0 Neutrophils # 8.4 H Lymphocytes # 1.9 Monocytes # 1.5 H Eosinophils # 0.2 Basophils # 0.0 Nucleated Red Blood Cells # 0.0 Sodium Level 134 L Potassium Level 3.8 Chloride Level 100 Carbon Dioxide Level 23 Anion Gap 15 # Blood Urea Nitrogen 76 H Creatinine 8.18 H Glucose Level 96 Calcium Level 7.9 L Phosphorus Level 6.8 H Magnesium Level 2.0 Urine Eosinophils % 0.0 Urine Random Creatinine 111.44 Urine Protein/Creatinine Ratio 1.78 Urine Total Protein 199.0 H Medications Medications Current Medications Ondansetron HCl (Zofran Inj) 4 mg Q6H PRN IV NAUSEA AND/OR VOMITING; Start 07/04 at 06:30 Aspirin (Aspirin) 81 mg DAILY PO Last administered on 07/05/16 08:45; Admin Dose 81 MG; Start 07/04/16 at 09:00 Acetaminophen (Tylenol Tab) 650 mg Q6H PRN PO PAIN LEVEL 1-3 OR FEVER; Start at 06:30 Morphine Sulfate (morphine) 2 mg Q4H PRN IV PAIN LEVEL 7-10; Start 07/04/16 at 06:30 Carvedilol (Coreg) 6.25 mg BID PO Last administered on 07/05/16 08:46; Admin Dose 6.25 MG; Start 07/04/16 at 21:00 Hydralazine HCl (Apresoline) 10 mg Q4H PRN IV SBP>160 Last administered on 12:44; Admin Dose 10 MG; Start 07/04/16 at 18:00 Nifedipine (Procardia Xl) 60 mg DAILY PO Last administered on 07/05/16 13:30; Admin Dose 60 MG; Start 07/05/16 at 13:00 ANTOINE ESPINOZA MD Jul 05, 2016 16:53
--- NOTE | 2016-07-05 18:23 | RADRPT ---
PROCEDURE: MR Brain noncontrast. CLINICAL INDICATION: White matter abnormality. TECHNIQUE: Multiplanar multisequence noncontrast MRI of the brain was performed. COMPARISON: Noncontrast CT of the head from July 04, 2016. FINDINGS: The ventricles and sulci are within normal limits. There are moderate to extensive ovoid periventricular and subcortical T2 hyperintensities predominat jose within the callososeptal interface. Findings are suspicious for demyelination. There is a parti ally empty sella turcica. There is no acute infarction. There is no intracranial hemorrhage or extra-axial fluid collection. There is no midline shift. The brainstem is within normal limits. The posterior fossa is unremarkable. The normal intracranial, intravascular flow voids are preserved. The visualized paranasal sinuses are well aerated. The orbits are grossly unremarkable. There is no destructive osseous lesion. IMPRESSION: 1. Moderate to extensive ovoid periventricular and subcortical T2 hyperintensities probably within the callososeptal interface which are nonspecific but suspicious for demyelination given appearance. Early moderate to extensive microvascular ischemic changes, vasculitis, versus less likely white m atter etiologies are not excluded. Further workup may be performed as clinically warranted. 2. No acute infarction or intracranial hemorrhage. 3. Partially empty sella turcica. Further findings as detailed above. RPTAT: PP .Ranjan Hampton MD, Date Time Electronically viewed and signed by .Ranjan Hampton MD, on 07/05/2016 18:22 .F/
[2016-07-06] VITALS (13 sets, daily range): BP systolic 129–182; BP diastolic 84–109; PULSE 87–106; RESP 18–20
[2016-07-06] MEDS: hydrALAzine 20 MG INJ IV PRN ×2 (05:28→16:56)
[2016-07-06 07:20] LABS: ADD SCAN DIFF NO
[2016-07-06 07:24] LABS: ABNORMAL IP MESSAGE 1; BASOPHILS % 0.4 % (0.0-2.0); EOSINOPHILS # 0.1 10^3/ul (0.0-0.5); EOSINOPHILS % 1.2 % (0.0-7.0); HEMATOCRIT 34.1 % (42.0-52.0); HEMOGLOBIN 11.5 g/dl (14.0-18.0); LYMPHOCYTES # 1.7 10^3/ul (0.8-2.9); LYMPHOCYTES % 14.5 % (15.0-51.0); MEAN CORPUSCULAR HEMOGLOBIN 29.4 pg (29.0-33.0); MEAN CORPUSCULAR HGB CONC 33.7 g/dl (32.0-37.0); MEAN CORPUSCULAR VOLUME 87.2 fl (82.0-101.0); MONOCYTE # 1.2 10^3/ul (0.3-0.9); MONOCYTES % 10.7 % (0.0-11.0); NEUTROPHIL # 8.2 10^3/ul (1.6-7.5); NEUTROPHILS % 72.5 % (39.0-77.0); RED BLOOD COUNT 3.91 10^6/ul (4.70-6.10); WHITE BLOOD COUNT 11.4 10^3/ul (4.8-10.8)
[2016-07-06 07:32] LABS: PLATELET COUNT 139 10^3/UL (140-415)
[2016-07-06 07:46] LABS: POTASSIUM 3.9 mmol/L (3.5-5.1)
[2016-07-06 07:49] LABS: CREATININE 8.24 mg/dl (0.61-1.24)
[2016-07-06 07:50] LABS: CALCIUM 8.5 mg/dl (8.4-10.2)
[2016-07-06] MEDS: ASPIRIN 81 MG TAB PO SCH (08:25)
[2016-07-06] MEDS: NIFEdipine (XL) 60 MG TAB PO SCH (08:26)
--- NOTE | 2016-07-06 09:52 | CONS ---
Date/Time of Note Date/Time of Note DATE: 07/06/16 TIME: 09:49 Assessment/Plan Assessment/Plan Chief Complaint/Hosp Course - CHRONIC KIDNEY DISEASE III - ACUTE KIDNEY INJURY - HYPERTENSION EMERGENCY - HTN NEPHROSCLEROSIS - THROMBOCYTOPENIA - HEMATURIA - +/- RHABDO - LOW ALBUMIN PLAN: His baseline creatinine has been ~ 2 range ( Latest FEB 2016 ) BP better this AM For Stress test today plan noted Stable CKD No sign of uremia Continue with IV Fluid for now 0.9% @ 80 ml/hr ~ 1.7 Grams of proteinuria ( Possible due to HTN Nephrosclerosis & Uncontrolled BP , ? GN ) Problems: Consultation Date/Type/Reason Admit Date/Time Jul 03, 2016 at 23:09 Initial Consult Date 07/05/16 Type of Consultation: NEPHROLOGY Reason for Consultation - ACUTE KIDNEY INJURY - CHRONIC KIDNEY DISEASE 24 HR Interval Summary Constitutional: improved, no complaints Exam/Review of Systems Vital Signs Vitals Vital Signs Date Time Temp Pulse Resp B/P Pulse Ox O2 Delivery O2 Flow Rate FiO2 07/06/16 08:24 98.3 99 18 129/84 98 07/04/16 06:06 Room Air Intake and Output 07/05/16 07/05/16 07/06/16 15:00 23:00 07:00 Intake Total 800 ml 300 ml Output Total 900 ml Balance 800 ml -600 ml Exam Constitutional: alert, oriented Psych: no complaints Head: normocephalic Eyes: nl conjunctiva Neck: supple Respiratory: crackles/rales Cardiovascular: regular rate and rhythm, systolic murmur Gastrointestinal: soft Results Result Diagram: 07/06/16 0640 07/06/16 0640 Results 24 hrs Laboratory Tests Test 07/05/16 13:36 07/05/16 13:47 07/06/16 06:40 Urine Eosinophils % 0.0 Urine Random Creatinine 111.44 Urine Protein/Creatinine Ratio 1.78 Urine Total Protein 199.0 H White Blood Count 11.4 H Red Blood Count 3.91 L Hemoglobin 11.5 L Hematocrit 34.1 L Mean Corpuscular Volume 87.2 Mean Corpuscular Hemoglobin 29.4 Mean Corpuscular Hemoglobin Concent 33.7 Red Cell Distribution Width 18.0 H Platelet Count 139 #L Mean Platelet Volume Neutrophils % 72.5 Lymphocytes % 14.5 L Monocytes % 10.7 Eosinophils % 1.2 Basophils % 0.4 Nucleated Red Blood Cells % 0.0 Neutrophils # 8.2 H Lymphocytes # 1.7 Monocytes # 1.2 H Eosinophils # 0.1 Basophils # 0.0 Nucleated Red Blood Cells # 0.0 Sodium Level 135 Potassium Level 3.9 Chloride Level 100 Carbon Dioxide Level 22 Anion Gap 17 H Blood Urea Nitrogen 80 H Creatinine 8.24 H Glucose Level 93 Calcium Level 8.5 Medications Medications Current Medications Ondansetron HCl (Zofran Inj) 4 mg Q6H PRN IV NAUSEA AND/OR VOMITING; Start 07/04 at 06:30 Aspirin (Aspirin) 81 mg DAILY PO Last administered on 07/06/16 08:25; Admin Dose 81 MG; Start 07/04/16 at 09:00 Acetaminophen (Tylenol Tab) 650 mg Q6H PRN PO PAIN LEVEL 1-3 OR FEVER Last administered on 07/06/16 08:26; Admin Dose 650 MG; Start 07/04/16 at 06:30 Morphine Sulfate (morphine) 2 mg Q4H PRN IV PAIN LEVEL 7-10; Start 07/04/16 at 06:30 Carvedilol (Coreg) 6.25 mg BID PO Last administered on 07/06/16 08:26; Admin Dose 6.25 MG; Start 07/04/16 at 21:00 Hydralazine HCl (Apresoline) 10 mg Q4H PRN IV SBP>160 Last administered on 05:28; Admin Dose 10 MG; Start 07/04/16 at 18:00 Nifedipine (Procardia Xl) 60 mg DAILY PO Last administered on 07/06/16 08:26; Admin Dose 60 MG; Start 07/05/16 at 13:00 MIKE ROLDAN MD Jul 06, 2016 09:52
[2016-07-06] MEDS ORDERED: REGADENOSON 0.4 MG/5 ML SYG ONE (11:56)
--- NOTE | 2016-07-06 13:38 | PN ---
Date/Time of Note Date/Time of Note DATE: 07/06/16 TIME: 13:33 Assessment/Plan VTE Prophylaxis VTE Prophylaxis Intervention: heparin Lines/Catheters IV Catheter Type (from [facility]): Saline Lock Urinary Cath still in place: No Assessment/Plan Assessment/Plan 1. Hypertensive emergency, improving on procardia 2. Mildly elevated troponin, renal failure related, 3. Acute on chronic renal failure, follow up with nephrology 4. Thrombocytopenia - unclear etiology, abdominal u/s r/o splenomegaly 5. Abnormal findings on CT and MRI, neurology consult 6. History of alcohol abuse 7. Tobacco abuse 8. DVT prophylaxis: heparin Exam/Review of Systems Vital Signs Vitals Vital Signs Date Time Temp Pulse Resp B/P Pulse Ox O2 Delivery O2 Flow Rate FiO2 07/06/16 11:53 98.1 90 18 153/98 97 07/04/16 06:06 Room Air Intake and Output 07/05/16 07/05/16 07/06/16 15:00 23:00 07:00 Intake Total 800 ml 300 ml Output Total 900 ml Balance 800 ml -600 ml Exam Constitutional: alert, oriented, well developed Psych: nl mood/affect, no complaints Head: atraumatic, normocephalic Eyes: EOMI, PERRL, nl conjunctiva, nl lids ENMT: nl external ears & nose, nl lips & teeth, nl nasal mucosa & septum Neck: non-tender, supple Respiratory: clear to auscultation, normal air movement, No congested cough, No crackles/rales, No diminished breath sounds, No intercostal retraction, No labored breathing, No other, No respirations, No tactile fremitus, No wheezing Cardiovascular: nl pulses, regular rate and rhythm, No S3, No S4, No bruits, No diastolic murmur, No edema, No gallop, No irregular rhythm, No jugular venous distention (JVD), No murmurs/extra sounds, No other, No rub, No systolic murmur Gastrointestinal: nl liver, spleen, non-tender, soft, No ascites, No bowel sounds, No distended, No firm, No hepatomegaly, No mass , No other, No rebound or guarding, No splenomegaly, No surgical scars, No tender Musculoskeletal: nl extremities to inspection Extremities: normal pulses, No calf tenderness, No clubbing, No cyanosis, No edema, No other, No palpable cord, No pitting pedal edema, No tenderness 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, nl mental status, nl speech, nl strength Skin: nl turgor Lymph: nl lymph nodes Results Result Diagram: 07/06/16 0640 07/06/16 0640 Results 24 hrs Laboratory Tests Test 07/05/16 13:36 07/05/16 13:47 07/06/16 06:40 Urine Eosinophils % 0.0 Urine Random Creatinine 111.44 Urine Protein/Creatinine Ratio 1.78 Urine Total Protein 199.0 H White Blood Count 11.4 H Red Blood Count 3.91 L Hemoglobin 11.5 L Hematocrit 34.1 L Mean Corpuscular Volume 87.2 Mean Corpuscular Hemoglobin 29.4 Mean Corpuscular Hemoglobin Concent 33.7 Red Cell Distribution Width 18.0 H Platelet Count 139 #L Mean Platelet Volume Neutrophils % 72.5 Lymphocytes % 14.5 L Monocytes % 10.7 Eosinophils % 1.2 Basophils % 0.4 Nucleated Red Blood Cells % 0.0 Neutrophils # 8.2 H Lymphocytes # 1.7 Monocytes # 1.2 H Eosinophils # 0.1 Basophils # 0.0 Nucleated Red Blood Cells # 0.0 Erythrocyte Sedimentation Rate 34 H Sodium Level 135 Potassium Level 3.9 Chloride Level 100 Carbon Dioxide Level 22 Anion Gap 17 H Blood Urea Nitrogen 80 H Creatinine 8.24 H Glucose Level 93 Calcium Level 8.5 Medications Medications Current Medications Ondansetron HCl (Zofran Inj) 4 mg Q6H PRN IV NAUSEA AND/OR VOMITING; Start 07/04 at 06:30 Aspirin (Aspirin) 81 mg DAILY PO Last administered on 07/06/16 08:25; Admin Dose 81 MG; Start 07/04/16 at 09:00 Acetaminophen (Tylenol Tab) 650 mg Q6H PRN PO PAIN LEVEL 1-3 OR FEVER Last administered on 07/06/16 08:26; Admin Dose 650 MG; Start 07/04/16 at 06:30 Morphine Sulfate (morphine) 2 mg Q4H PRN IV PAIN LEVEL 7-10; Start 07/04/16 at 06:30 Carvedilol (Coreg) 6.25 mg BID PO Last administered on 07/06/16 08:26; Admin Dose 6.25 MG; Start 07/04/16 at 21:00 Hydralazine HCl (Apresoline) 10 mg Q4H PRN IV SBP>160 Last administered on 05:28; Admin Dose 10 MG; Start 07/04/16 at 18:00 Nifedipine (Procardia Xl) 60 mg DAILY PO Last administered on 07/06/16 08:26; Admin Dose 60 MG; Start 07/05/16 at 13:00 PAULIE DELANEY MD Jul 06, 2016 13:38
--- NOTE | 2016-07-06 13:51 | CONS ---
Date/Time of Note Date/Time of Note DATE: 07/06/16 TIME: 13:49 Assessment/Plan Assessment/Plan Chief Complaint/Hosp Course Assessment: Hypertensive emergency - secondary to stopping anti-hypertensive medications ( especially rebound effect of clonidine), blood pressures now improved NSTEMI - likely type 2 in setting of hypertensive emergency and renal failure Cardiomyopathy, LVEF 40-45% - hypertensive vs ischemic heart disease Acute kidney injury on chronic kidney disease - per nephrology Abnormal brain CT and MRI - neurology evaluation Thrombocytopenia - unclear etiology, improving History of alcohol abuse Tobacco abuse Medical noncompliance Recommendations: -echocardiogram showed LVEF 40-45% with global hypokinesis, moderate LVH -follow up Lexiscan SPECT results -nifedipine XL increased to 90mg daily, up titrate as needed -continue carvedilol 6.25mg BID, up titrate as needed -continue aspirin 81mg daily, monitor platelets Problems: Consultation Date/Type/Reason Admit Date/Time Jul 03, 2016 at 23:09 Initial Consult Date 07/05/16 Type of Consultation: Cardiology 24 HR Interval Summary Free Text/Dictation Lexiscan SPECT today. Detailed Summary Additional Comments 14 point review of systems without changes. Exam/Review of Systems Vital Signs Vitals Vital Signs Date Time Temp Pulse Resp B/P Pulse Ox O2 Delivery O2 Flow Rate FiO2 07/06/16 11:53 98.1 90 18 153/98 97 07/04/16 06:06 Room Air Intake and Output 07/05/16 07/05/16 07/06/16 15:00 23:00 07:00 Intake Total 800 ml 300 ml Output Total 900 ml Balance 800 ml -600 ml Exam Constitutional: alert, well developed Psych: nl mood/affect, no complaints Head: atraumatic, normocephalic Eyes: nl conjunctiva, nl lids ENMT: nl external ears & nose, nl nasal mucosa & septum Neck: non-tender, supple Respiratory: clear to auscultation, normal air movement Cardiovascular: regular rate and rhythm Gastrointestinal: non-tender, soft Musculoskeletal: nl extremities to inspection Extremities: No clubbing, No cyanosis, No edema Neurological: nl mental status, nl speech Results Result Diagram: 07/06/16 0640 07/06/16 0640 Results 24 hrs Laboratory Tests Test 07/06/16 06:40 White Blood Count 11.4 H Red Blood Count 3.91 L Hemoglobin 11.5 L Hematocrit 34.1 L Mean Corpuscular Volume 87.2 Mean Corpuscular Hemoglobin 29.4 Mean Corpuscular Hemoglobin Concent 33.7 Red Cell Distribution Width 18.0 H Platelet Count 139 #L Mean Platelet Volume Neutrophils % 72.5 Lymphocytes % 14.5 L Monocytes % 10.7 Eosinophils % 1.2 Basophils % 0.4 Nucleated Red Blood Cells % 0.0 Neutrophils # 8.2 H Lymphocytes # 1.7 Monocytes # 1.2 H Eosinophils # 0.1 Basophils # 0.0 Nucleated Red Blood Cells # 0.0 Erythrocyte Sedimentation Rate 34 H Sodium Level 135 Potassium Level 3.9 Chloride Level 100 Carbon Dioxide Level 22 Anion Gap 17 H Blood Urea Nitrogen 80 H Creatinine 8.24 H Glucose Level 93 Calcium Level 8.5 Medications Medications Current Medications Ondansetron HCl (Zofran Inj) 4 mg Q6H PRN IV NAUSEA AND/OR VOMITING; Start 07/04 at 06:30 Aspirin (Aspirin) 81 mg DAILY PO Last administered on 07/06/16 08:25; Admin Dose 81 MG; Start 07/04/16 at 09:00 Acetaminophen (Tylenol Tab) 650 mg Q6H PRN PO PAIN LEVEL 1-3 OR FEVER Last administered on 07/06/16 08:26; Admin Dose 650 MG; Start 07/04/16 at 06:30 Morphine Sulfate (morphine) 2 mg Q4H PRN IV PAIN LEVEL 7-10; Start 07/04/16 at 06:30 Carvedilol (Coreg) 6.25 mg BID PO Last administered on 07/06/16 08:26; Admin Dose 6.25 MG; Start 07/04/16 at 21:00 Hydralazine HCl (Apresoline) 10 mg Q4H PRN IV SBP>160 Last administered on 05:28; Admin Dose 10 MG; Start 07/04/16 at 18:00 Nifedipine (Procardia Xl) 90 mg DAILY PO ; Start 07/07/16 at 09:00 ANTOINE ESPINOZA MD Jul 06, 2016 13:51
--- NOTE | 2016-07-06 17:10 | RADRPT ---
PROCEDURE: Lexiscan myocardial perfusion study CLINICAL INDICATION: 41 -year-old patient complaining of chest pain. TECHNIQUE: Lexiscan 0.4 mg intravenously separate acquisition gated myocardial perfusion SPECT usi ng Tc 99m Myoview 31.9 mCi intravenously at stress and Tc-99m Myoview, 10 point. mCi intravenously a t rest was performed using the rest/stress sequence. Poststress Myoview SPECT images were obtained in the supine position. COMPARISON: No prior studies. FINDINGS: Perfusion images reveal no evidence of perfusion defects. Lexiscan post stress gated SPECT images demonstrate mild to moderate hypokinesis of the left left ve ntricle. IMPRESSION: 1. No evidence of perfusion defects. 2. Mild to moderate hypokinesis of the left hand. 3. The left ventricle ejection fraction at stress is 37%. RPTAT: HH .Belkys Scott MD, MD Date Time Electronically viewed and signed by .Belkys Scott MD, on 07/06/2016 17:09 .L/
[2016-07-07] VITALS (13 sets, daily range): BP systolic 117–173; BP diastolic 97–121; PULSE 89–101; RESP 16–20
[2016-07-07] MEDS: hydrALAzine 20 MG INJ IV PRN ×2 (01:17→08:08)
[2016-07-07] MEDS: ASPIRIN 81 MG TAB PO SCH (08:09)
[2016-07-07] MEDS: NIFEdipine (XL) 90 MG TAB PO SCH (08:09)
[2016-07-07 09:59] LABS: MYELOPEROXIDASE ANTIBODY <1.0 AI; PROTEINASE-3 ANTIBODY <1.0 AI
--- NOTE | 2016-07-07 13:09 | CONS ---
Date/Time of Note Date/Time of Note DATE: 07/07/16 TIME: 12:56 Assessment/Plan Assessment/Plan Chief Complaint/Hosp Course 41 year old male with previous smoking history, hypertensive emergency, renal failure admitted with blurred vision and headaches. MRI Brain w/o contrast showed chronic microvascular per-ventricular changes suggestive of long standing small vessel disease from uncontrolled risk factors. 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 reinforced weight loss, dietary modification may follow up with neurology as outpatient Problems: Consultation Date/Type/Reason Admit Date/Time Jul 03, 2016 at 23:09 Date of Consultation: Jul 07, 2016 Type of Consultation: Neurology Reason for Consultation abnormal Brain MRI suggestive of extensive periventricular WM changes Referring Provider: PAULIE DELANEY MD Hx of Present Illness 41 year old male with history of hypertension and CKD for several years presumably secondary to uncontrolled hypertension, smoker up to 20 years admitted with complaints of headaches, intermittent blurred vision admitted with hypertensive emergency and worsening renal failure. MRI Brain showed moderate to extensive periventricular subcortical T2 hyperintensities non-specific suggestive of extensive microvascular changes. Aside from blurred vision associated with presentation, he denies any other focal neurologic symptoms. blurred vision occasionally Constitutional: improved, no complaints Eyes: no complaints, visual change ENT: no complaints Respiratory: no complaints Cardiovascular: chest pain, no complaints Gastrointestinal: no complaints Genitourinary: no complaints Musculoskeletal: no complaints Skin: no complaints Neurologic: no complaints Psychological: nl mood/affect, no complaints Past Surgical History Past Surgical Hx: no surgical history Family History Significant Family History: other (no family history of vasculitis, migraines or hypercoagulable disorders) Social History Alcohol Use: sober (previously heavy, quit one year ago) Smoking Status: Current every day smoker Drug Use: none Exam/Review of Systems Vital Signs Vitals Vital Signs Date Time Temp Pulse Resp B/P Pulse Ox O2 Delivery O2 Flow Rate FiO2 07/07/16 12:29 89 07/07/16 07:59 98.0 20 173/119 97 07/04/16 06:06 Room Air Intake and Output 07/06/16 07/06/16 07/07/16 15:00 23:00 07:00 Intake Total 750 ml 450 ml Balance 750 ml 450 ml Exam awake and alert oriented x3 obese NAD appears comfortable no aphasia, no neglect CN: GYPSY, VFF, EOMI no nystagmus, no facial asymmetry palate upgoing , uvula midline scm/trap intact tongue midline Motor: bilateral UE and LE 5/5 Sensory: intact throughout Reflexes 1+ throughout toes are downgoing Coordination: no ataxia Results Result Diagram: 07/06/1663907/06/16639 Medications Medications Current Medications Ondansetron HCl (Zofran Inj) 4 mg Q6H PRN IV NAUSEA AND/OR VOMITING; Start 07/04 at 06:30 Aspirin (Aspirin) 81 mg DAILY PO Last administered on 07/07/16 08:09; Admin Dose 81 MG; Start 07/04/16 at 09:00 Acetaminophen (Tylenol Tab) 650 mg Q6H PRN PO PAIN LEVEL 1-3 OR FEVER Last administered on 07/06/16 08:26; Admin Dose 650 MG; Start 07/04/16 at 06:30 Morphine Sulfate (morphine) 2 mg Q4H PRN IV PAIN LEVEL 7-10; Start 07/04/16 at 06:30 Carvedilol (Coreg) 6.25 mg BID PO Last administered on 07/07/16 08:09; Admin Dose 6.25 MG; Start 07/04/16 at 21:00 Hydralazine HCl (Apresoline) 10 mg Q4H PRN IV SBP>160 Last administered on 08:08; Admin Dose 10 MG; Start 07/04/16 at 18:00 Nifedipine (Procardia Xl) 90 mg DAILY PO Last administered on 07/07/16 08:09; Admin Dose 90 MG; Start 07/07/16 at 09:00 JESUS CHISHOLM MD Jul 07, 2016 13:09
[2016-07-07 13:17] LABS: ANA SCREEN NEGATIVE (NEGATIVE)
--- NOTE | 2016-07-07 13:47 | PN ---
Date/Time of Note Date/Time of Note DATE: 07/07/16 TIME: 13:39 Assessment/Plan VTE Prophylaxis VTE Prophylaxis Intervention: heparin Lines/Catheters IV C[facility] Type (from [facility] Saline Lock Urinary Cath still in place: No Assessment/Plan Assessment/Plan 1. Hypertensive emergency, add hydralazine today for better BP control 2. Mildly elevated troponin, renal failure related, negative stress thallium test 3. Acute on chronic renal failure, follow up with nephrology for discharge plan 4. Thrombocytopenia, resolved 5. Abnormal findings on CT and MRI, discussed with neurology today 6. History of alcohol abuse 7. Tobacco abuse 8. DVT prophylaxis: heparin Subjective 24 Hr Interval Summary Free Text/Dictation no chest pain. no shortness of breath Exam/Review of Systems Vital Signs Vitals Vital Signs Date Time Temp Pulse Resp B/P Pulse Ox O2 Delivery O2 Flow Rate FiO2 07/07/16 12:29 89 07/07/16 07:59 98.0 20 173/119 97 07/04/16 06:06 Room Air Intake and Output 07/06/16 07/06/16 07/07/16 15:00 23:00 07:00 Intake Total 750 ml 450 ml Balance 750 ml 450 ml Exam Constitutional: alert, oriented, well developed Psych: nl mood/affect, no complaints Head: atraumatic, normocephalic Eyes: EOMI, nl conjunctiva, nl lids ENMT: nl external ears & nose, nl lips & teeth, nl nasal mucosa & septum Neck: non-tender, supple Respiratory: clear to auscultation, normal air movement, No congested cough, No crackles/rales, No diminished breath sounds, No intercostal retraction, No labored breathing, No other, No respirations, No tactile fremitus, No wheezing Cardiovascular: nl pulses, regular rate and rhythm, No S3, No S4, No bruits, No diastolic murmur, No edema, No gallop, No irregular rhythm, No jugular venous distention (JVD), No murmurs/extra sounds, No other, No rub, No systolic murmur Gastrointestinal: nl liver, spleen, non-tender, soft, No ascites, No bowel sounds, No distended, No firm, No hepatomegaly, No mass , No other, No rebound or guarding, No splenomegaly, No surgical scars, No tender Musculoskeletal: nl extremities to inspection Extremities: normal pulses, No calf tenderness, No clubbing, No cyanosis, No edema, No other, No palpable cord, No pitting pedal edema, No tenderness 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, nl mental status, nl speech, nl strength Skin: nl turgor Lymph: nl lymph nodes Results Result Diagram: 07/06/1663907/06/16639 Medications Medications Current Medications Ondansetron HCl (Zofran Inj) 4 mg Q6H PRN IV NAUSEA AND/OR VOMITING; Start 07/04 at 06:30 Aspirin (Aspirin) 81 mg DAILY PO Last administered on 07/07/16 08:09; Admin Dose 81 MG; Start 07/04/16 at 09:00 Acetaminophen (Tylenol Tab) 650 mg Q6H PRN PO PAIN LEVEL 1-3 OR FEVER Last administered on 07/06/16 08:26; Admin Dose 650 MG; Start 07/04/16 at 06:30 Morphine Sulfate (morphine) 2 mg Q4H PRN IV PAIN LEVEL 7-10; Start 07/04/16 at 06:30 Carvedilol (Coreg) 6.25 mg BID PO Last administered on 07/07/16 08:09; Admin Dose 6.25 MG; Start 07/04/16 at 21:00 Hydralazine HCl (Apresoline) 10 mg Q4H PRN IV SBP>160 Last administered on 08:08; Admin Dose 10 MG; Start 07/04/16 at 18:00 Nifedipine (Procardia Xl) 90 mg DAILY PO Last administered on 07/07/16 08:09; Admin Dose 90 MG; Start 07/07/16 at 09:00 PAULIE DELANEY MD Jul 07, 2016 13:47
--- NOTE | 2016-07-07 15:32 | CONS ---
Date/Time of Note Date/Time of Note DATE: 07/07/16 TIME: 15:28 Assessment/Plan Assessment/Plan Chief Complaint/Hosp Course - CHRONIC KIDNEY DISEASE III - ACUTE KIDNEY INJURY - HYPERTENSION EMERGENCY - HTN NEPHROSCLEROSIS - THROMBOCYTOPENIA - HEMATURIA - +/- RHABDO - LOW ALBUMIN PLAN: His baseline creatinine has been ~ 2 range ( Latest FEB 2016 ) BP improving NO LABS TODAY Has poor appetite Continue with IV Fluid for now 0.9% @ 80 ml/hr ~ 1.7 Grams of proteinuria ( Possible due to HTN Nephrosclerosis & Uncontrolled BP , ? GN ) _ Check labs in AM _ If no improvment in his Renal function, I will discuss with him about ? Need for dialysis Problems: Consultation Date/Type/Reason Admit Date/Time Jul 03, 2016 at 23:09 Initial Consult Date 07/05/16 Type of Consultation: NEPHROLOGY Referring Provider: PAULIE DELANEY MD 24 HR Interval Summary Constitutional: improved, no complaints Exam/Review of Systems Vital Signs Vitals Vital Signs Date Time Temp Pulse Resp B/P Pulse Ox O2 Delivery O2 Flow Rate FiO2 07/07/16 12:29 89 07/07/16 12:00 98.0 20 132/100 95 Room Air Intake and Output 07/06/16 07/06/16 07/07/16 15:00 23:00 07:00 Intake Total 750 ml 450 ml Balance 750 ml 450 ml Exam Constitutional: alert, oriented Neck: supple Respiratory: crackles/rales Cardiovascular: regular rate and rhythm Gastrointestinal: soft Results Result Diagram: 07/06/16 0640 07/06/16 0640 Medications Medications Current Medications Ondansetron HCl (Zofran Inj) 4 mg Q6H PRN IV NAUSEA AND/OR VOMITING; Start 07/04 at 06:30 Aspirin (Aspirin) 81 mg DAILY PO Last administered on 07/07/16 08:09; Admin Dose 81 MG; Start 07/04/16 at 09:00 Acetaminophen (Tylenol Tab) 650 mg Q6H PRN PO PAIN LEVEL 1-3 OR FEVER Last administered on 07/06/16 08:26; Admin Dose 650 MG; Start 07/04/16 at 06:30 Morphine Sulfate (morphine) 2 mg Q4H PRN IV PAIN LEVEL 7-10; Start 07/04/16 at 06:30 Carvedilol (Coreg) 6.25 mg BID PO Last administered on 07/07/16 08:09; Admin Dose 6.25 MG; Start 07/04/16 at 21:00 Hydralazine HCl (Apresoline) 10 mg Q4H PRN IV SBP>160 Last administered on 08:08; Admin Dose 10 MG; Start 07/04/16 at 18:00 Nifedipine (Procardia Xl) 90 mg DAILY PO Last administered on 07/07/16 08:09; Admin Dose 90 MG; Start 07/07/16 at 09:00 Hydralazine HCl (Apresoline) 25 mg TID PO ; Start 07/07/16 at 21:00 MIKE ROLDAN MD Jul 07, 2016 15:32
[2016-07-07] MEDS ORDERED: LORAZEPAM 2 MG INJ IV ONE (17:00)
--- NOTE | 2016-07-07 18:43 | RADRPT ---
PROCEDURE: MRA Brain. CLINICAL INDICATION: White matter abnormality. TECHNIQUE: An MRA of the brain was performed without intravenous contrast utilizing the following sequences: 3-D [id number] images through the intracranial vasculature with post processed cherelle l intensity projections in multiple planes. COMPARISON: Brain MRI 07/05/2016. FINDINGS: The petrous, cavernous, and supraclinoid internal carotid artery segments are patent without evidenc e of significant stenosis. The A1 segment of right ERNST is hypoplastic. The A1 segment of left ERNST i s patent and gives off bilateral A2 segments which are anatomical variation. The proximal anterior c erebral and middle cerebral arteries are patent without significant stenosis. The intradural verteb ral arteries, basilar artery and posterior cerebral arteries are patent without evidence of signific ant focal stenosis. No aneurysms are identified. IMPRESSION: 1. Patent major intracranial arteries. 2. Hypoplastic A1 segment of right ERNST. The A1 segment of left ERNST is patent and gives off bilater al A2 segments which are anatomical variation. RPTAT: HFN .Megan Lyon MD, MD Date Time Electronically viewed and signed by .Megan Lyon MD, MD on 07/07/2016 18:43 .N/
--- NOTE | 2016-07-07 18:46 | RADRPT ---
PROCEDURE: MRA Neck without contrast. CLINICAL INDICATION: White matter abnormality. TECHNIQUE: An MRA of the major cervical arteries was performed utilizing axial 2D time of flight, 3-D [id number] through the carotid bifurcations, and dynamic contrast enhanced 3-D MR angiograph y technique. Source and MIP images were reviewed. COMPARISON: No prior studies are available for comparison. FINDINGS: The origins of the great vessels off the aortic arch are patent without significant stenosis. Evalu ation of the bilateral carotid bulbs are suboptimal due to artifacts. The common carotid and restaurant management internship al carotid arteries are patent without hemodynamically significant stenosis by NASCET criteria. Dire ct measurements of vessel diameters was made in reference to measurements of the distal internal car otid artery diameter. The left vertebral artery is dominant. Bilateral vertebral arteries are othe rwise patent without high-grade stenosis. IMPRESSION: 1. No significant stenosis of visualized major neck arteries. RPTAT: HFN .Megan Lyon MD, Date Time Electronically viewed and signed by .Megan Lyon MD, on 07/07/2016 18:46 .N/
[2016-07-08] VITALS (11 sets, daily range): BP systolic 151–201; BP diastolic 92–129; PULSE 88–96; RESP 16–20
[2016-07-08 07:46] LABS: ALBUMIN 3.4 g/dl (3.3-4.9); ALBUMIN/GLOBULIN RATIO 1.13; BILIRUBIN,INDIRECT 0.3 mg/dl (0-1.1); BILIRUBIN,TOTAL 0.3 mg/dl (0.2-1.3); CALCIUM 8.6 mg/dl (8.4-10.2); CREATININE 7.82 mg/dl (0.61-1.24); POTASSIUM 4.1 mmol/L (3.5-5.1); TOTAL PROTEIN 6.4 g/dl (6.1-8.1)
[2016-07-08] MEDS: ASPIRIN 81 MG TAB PO SCH (08:52)
[2016-07-08] MEDS: NIFEdipine (XL) 90 MG TAB PO SCH (08:55)
--- NOTE | 2016-07-08 11:22 | CONS ---
Date/Time of Note Date/Time of Note DATE: 07/08/16 TIME: 11:21 Consult Date/Type/Reason Admit Date/Time Jul 03, 2016 at 23:09 Initial Consult Date 07/07/16 Type of Consultation: Neurology Reason for Consultation abnormal MRI Brain Ordering Provider: PAULIE DELANEY MD Subjective no acute neurologic issues Objective Vital Signs Date Time Temp Pulse Resp B/P Pulse Ox O2 Delivery O2 Flow Rate FiO2 07/08/16 08:50 98.2 20 194/124 98 Room Air 201/129 07/08/16 08:00 89 Intake and Output 07/07/16 07/07/16 07/08/16 15:00 23:00 07:00 Intake Total 220 ml 120 ml Balance 220 ml 120 ml Exam awake and alert oriented x3 obese NAD appears comfortable no aphasia, no neglect CN: GYPSY, VFF, EOMI no nystagmus, no facial asymmetry palate upgoing , uvula midline scm/trap intact tongue midline Motor: bilateral UE and LE 5/5 Sensory: intact throughout Reflexes 1+ throughout toes are downgoing Coordination: no ataxia Results/Medications Result Diagram: 07/06/16 0640 07/08/16 0710 Results 24 hrs Laboratory Tests Test 07/08/16 07:10 Sodium Level 134 L Potassium Level 4.1 Chloride Level 103 Carbon Dioxide Level 23 Anion Gap 12 Blood Urea Nitrogen 84 H Creatinine 7.82 H Glucose Level 97 Calcium Level 8.6 Total Bilirubin 0.3 Direct Bilirubin 0.00 Indirect Bilirubin 0.3 Aspartate Amino Transf (AST/SGOT) 33 Alanine Aminotransferase (ALT/SGPT) 44 Alkaline Phosphatase 75 Total Protein 6.4 Albumin 3.4 Globulin 3.00 Albumin/Globulin Ratio 1.13 Medications Current Medications Ondansetron HCl (Zofran Inj) 4 mg Q6H PRN IV NAUSEA AND/OR VOMITING; Start 07/04 at 06:30 Aspirin (Aspirin) 81 mg DAILY PO Last administered on 07/08/16 08:52; Admin Dose 81 MG; Start 07/04/16 at 09:00 Acetaminophen (Tylenol Tab) 650 mg Q6H PRN PO PAIN LEVEL 1-3 OR FEVER Last administered on 07/06/16 08:26; Admin Dose 650 MG; Start 07/04/16 at 06:30 Morphine Sulfate (morphine) 2 mg Q4H PRN IV PAIN LEVEL 7-10; Start 07/04/16 at 06:30 Carvedilol (Coreg) 6.25 mg BID PO Last administered on 07/08/16 08:56; Admin Dose 6.25 MG; Start 07/04/16 at 21:00 Hydralazine HCl (Apresoline) 10 mg Q4H PRN IV SBP>160 Last administered on 08:08; Admin Dose 10 MG; Start 07/04/16 at 18:00 Nifedipine (Procardia Xl) 90 mg DAILY PO Last administered on 07/08/16 08:55; Admin Dose 90 MG; Start 07/07/16 at 09:00 Hydralazine HCl (Apresoline) 25 mg TID PO Last administered on 07/08/16 08:56; Admin Dose 25 MG; Start 07/07/16 at 21:00 Assessment/Plan Chief Complaint/Hosp Course 41 year old male with previous smoking history, hypertensive emergency, renal failure admitted with blurred vision and headaches. MRI Brain w/o contrast showed chronic microvascular per-ventricular changes suggestive of long standing small vessel disease from uncontrolled risk factors. 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
[2016-07-08] MEDS: hydrALAzine 20 MG INJ IV PRN (12:30)
--- NOTE | 2016-07-08 14:11 | PN ---
Date/Time of Note Date/Time of Note DATE: 07/08/16 TIME: 14:10 Assessment/Plan VTE Prophylaxis VTE Prophylaxis Intervention: heparin Lines/Catheters IV [facility] Saline Lock Urinary Cath still in place: No Assessment/Plan Assessment/Plan 1. Hypertensive emergency, increase hydralazine today for better BP control 2. Mildly elevated troponin, renal failure related, negative stress thallium test 3. Acute on chronic renal failure, follow up with nephrology for HD? 4. Thrombocytopenia, resolved 5. Abnormal findings on CT and MRI, discussed with neurology today 6. History of alcohol abuse 7. Tobacco abuse 8. DVT prophylaxis: heparin Subjective 24 Hr Interval Summary Free Text/Dictation no complaint. No shortness of breath. Exam/Review of Systems Vital Signs Vitals Vital Signs Date Time Temp Pulse Resp B/P Pulse Ox O2 Delivery O2 Flow Rate FiO2 07/08/16 13:51 151/92 07/08/16 12:26 98.4 95 18 97 Room Air Intake and Output 07/07/16 07/07/16 07/08/16 15:00 23:00 07:00 Intake Total 220 ml 120 ml Balance 220 ml 120 ml Exam Constitutional: alert, oriented, well developed Psych: anxiety, nl mood/affect, no complaints Head: atraumatic, normocephalic Eyes: EOMI, PERRL, nl conjunctiva, nl lids ENMT: mucosa pink and moist, nl external ears & nose, nl lips & teeth, nl nasal mucosa & septum Neck: non-tender, supple Respiratory: clear to auscultation, normal air movement, No congested cough, No crackles/rales, No diminished breath sounds, No intercostal retraction, No labored breathing, No other, No respirations, No tactile fremitus, No wheezing Cardiovascular: nl pulses, regular rate and rhythm, No S3, No S4, No bruits, No diastolic murmur, No edema, No gallop, No irregular rhythm, No jugular venous distention (JVD), No murmurs/extra sounds, No other, No rub, No systolic murmur Gastrointestinal: nl liver, spleen, non-tender, soft, No ascites, No bowel sounds, No distended, No firm, No hepatomegaly, No mass , No other, No rebound or guarding, No splenomegaly, No surgical scars, No tender Musculoskeletal: nl extremities to inspection Extremities: normal pulses, No calf tenderness, No clubbing, No cyanosis, No edema, No other, No palpable cord, No pitting pedal edema, No tenderness 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, nl mental status, nl speech, nl strength Skin: nl turgor Lymph: nl lymph nodes Results Result Diagram: 07/06/16 0640 07/08/16 0710 Results 24 hrs Laboratory Tests Test 07/08/16 07:10 Sodium Level 134 L Potassium Level 4.1 Chloride Level 103 Carbon Dioxide Level 23 Anion Gap 12 Blood Urea Nitrogen 84 H Creatinine 7.82 H Glucose Level 97 Calcium Level 8.6 Total Bilirubin 0.3 Direct Bilirubin 0.00 Indirect Bilirubin 0.3 Aspartate Amino Transf (AST/SGOT) 33 Alanine Aminotransferase (ALT/SGPT) 44 Alkaline Phosphatase 75 Total Protein 6.4 Albumin 3.4 Globulin 3.00 Albumin/Globulin Ratio 1.13 Medications Medications Current Medications Ondansetron HCl (Zofran Inj) 4 mg Q6H PRN IV NAUSEA AND/OR VOMITING; Start 07/04 at 06:30 Aspirin (Aspirin) 81 mg DAILY PO Last administered on 07/08/16 08:52; Admin Dose 81 MG; Start 07/04/16 at 09:00 Acetaminophen (Tylenol Tab) 650 mg Q6H PRN PO PAIN LEVEL 1-3 OR FEVER Last administered on 07/06/16 08:26; Admin Dose 650 MG; Start 07/04/16 at 06:30 Morphine Sulfate (morphine) 2 mg Q4H PRN IV PAIN LEVEL 7-10; Start 07/04/16 at 06:30 Carvedilol (Coreg) 6.25 mg BID PO Last administered on 07/08/16 08:56; Admin Dose 6.25 MG; Start 07/04/16 at 21:00 Hydralazine HCl (Apresoline) 10 mg Q4H PRN IV SBP>160 Last administered on 12:30; Admin Dose 10 MG; Start 07/04/16 at 18:00 Nifedipine (Procardia Xl) 90 mg DAILY PO Last administered on 07/08/16 08:55; Admin Dose 90 MG; Start 07/07/16 at 09:00 Hydralazine HCl (Apresoline) 50 mg TID PO ; Start 07/08/16 at 21:00; Status PAULIE RIVAS MD Jul 08, 2016 14:11
--- NOTE | 2016-07-08 17:24 | CONS ---
Date/Time of Note Date/Time of Note DATE: 07/08/16 TIME: 17:10 Assessment/Plan Assessment/Plan Chief Complaint/Hosp Course - CHRONIC KIDNEY DISEASE III - ACUTE KIDNEY INJURY - HYPERTENSION EMERGENCY - HTN NEPHROSCLEROSIS - THROMBOCYTOPENIA - HEMATURIA - +/- RHABDO - LOW ALBUMIN PLAN: His baseline creatinine has been ~ 2 range ( Latest FEB 2016 ) BP improving Creatinine slightly better Appetite is improving Continue with IV Fluid for now 0.9% @ 80 ml/hr ~ 1.7 Grams of proteinuria ( Possible due to HTN Nephrosclerosis & Uncontrolled BP , ? GN ) He may need a Pulmonary evaluation for possible "SLEEP APNEA" Monitor I/O closely MINOXIDIL 2.5 Mg PO BID Problems: Consultation Date/Type/Reason Admit Date/Time Jul 03, 2016 at 23:09 Initial Consult Date 07/05/16 Type of Consultation: NEPHROLOGY Referring Provider: PAULIE DELANEY MD 24 HR Interval Summary Constitutional: improved, no complaints Exam/Review of Systems Vital Signs Vitals Vital Signs Date Time Temp Pulse Resp B/P Pulse Ox O2 Delivery O2 Flow Rate FiO2 07/08/16 16:00 96 07/08/16 15:25 98.2 20 160/106 96 Room Air Intake and Output 07/07/16 07/07/16 07/08/16 15:00 23:00 07:00 Intake Total 220 ml 120 ml Balance 220 ml 120 ml Exam Constitutional: alert Psych: no complaints Head: normocephalic Neck: supple Respiratory: crackles/rales Cardiovascular: regular rate and rhythm, systolic murmur Gastrointestinal: soft Results Result Diagram: 07/06/16 0640 07/08/16 0710 Results 24 hrs Laboratory Tests Test 07/08/16 07:10 Sodium Level 134 L Potassium Level 4.1 Chloride Level 103 Carbon Dioxide Level 23 Anion Gap 12 Blood Urea Nitrogen 84 H Creatinine 7.82 H Glucose Level 97 Calcium Level 8.6 Total Bilirubin 0.3 Direct Bilirubin 0.00 Indirect Bilirubin 0.3 Aspartate Amino Transf (AST/SGOT) 33 Alanine Aminotransferase (ALT/SGPT) 44 Alkaline Phosphatase 75 Total Protein 6.4 Albumin 3.4 Globulin 3.00 Albumin/Globulin Ratio 1.13 Medications Medications Current Medications Ondansetron HCl (Zofran Inj) 4 mg Q6H PRN IV NAUSEA AND/OR VOMITING; Start 4/2 /17 at 06:30 Aspirin (Aspirin) 81 mg DAILY PO Last administered on 07/08/16 08:52; Admin Dose 81 MG; Start 07/04/16 at 09:00 Acetaminophen (Tylenol Tab) 650 mg Q6H PRN PO PAIN LEVEL 1-3 OR FEVER Last administered on 07/06/16 08:26; Admin Dose 650 MG; Start 07/04/16 at 06:30 Morphine Sulfate (morphine) 2 mg Q4H PRN IV PAIN LEVEL 7-10; Start 07/04/16 at 06:30 Carvedilol (Coreg) 6.25 mg BID PO Last administered on 07/08/16 08:56; Admin Dose 6.25 MG; Start 07/04/16 at 21:00 Hydralazine HCl (Apresoline) 10 mg Q4H PRN IV SBP>160 Last administered on 12:30; Admin Dose 10 MG; Start 07/04/16 at 18:00 Nifedipine (Procardia Xl) 90 mg DAILY PO Last administered on 07/08/16 08:55; Admin Dose 90 MG; Start 07/07/16 at 09:00 Hydralazine HCl (Apresoline) 50 mg TID PO ; Start 07/08/16 at 21:00 MIKE ROLDAN MD Jul 08, 2016 17:22
--- NOTE | 2016-07-08 19:49 | CONS ---
Date/Time of Note Date/Time of Note DATE: 07/08/16 TIME: 19:45 Assessment/Plan Assessment/Plan Chief Complaint/Hosp Course Assessment: Hypertensive emergency - secondary to stopping anti-hypertensive medications ( especially rebound effect of clonidine), blood pressures still elevated NSTEMI - likely type 2 in setting of hypertensive emergency and renal failure Nonischemic cardiomyopathy, LVEF 40-45% - likely due to hypertensive heart disease Acute kidney injury on chronic kidney disease - per nephrology Abnormal brain CT and MRI - neurology evaluation Thrombocytopenia - unclear etiology, improving History of alcohol abuse Tobacco abuse Medical noncompliance Recommendations: -echocardiogram showed LVEF 40-45% with global hypokinesis, moderate LVH -Lexiscan SPECT negative for perfusion defects -increase carvedilol to 12.5mg BID -continue hydralazine 50mg TID and add Imdur 30mg daily for systolic dysfunction -continue nifedipine XL 90mg daily and minoxidil 2.5mg BID -continue aspirin 81mg daily, monitor platelets Problems: Consultation Date/Type/Reason Admit Date/Time Jul 03, 2016 at 23:09 Initial Consult Date 07/05/16 Type of Consultation: Cardiology 24 HR Interval Summary Free Text/Dictation No chest pain or shortness of breath. Blood pressures remain elevated. Lexiscan SPECT was negative for perfusion defects. Detailed Summary Additional Comments 14 point review of systems without changes. Exam/Review of Systems Vital Signs Vitals Vital Signs Date Time Temp Pulse Resp B/P Pulse Ox O2 Delivery O2 Flow Rate FiO2 07/08/16 16:00 96 07/08/16 15:25 98.2 20 160/106 96 Room Air Intake and Output 07/07/16 07/07/16 07/08/16 15:00 23:00 07:00 Intake Total 220 ml 120 ml Balance 220 ml 120 ml Exam Constitutional: alert, well developed Psych: nl mood/affect, no complaints Head: atraumatic, normocephalic Eyes: nl conjunctiva, nl lids ENMT: nl external ears & nose, nl nasal mucosa & septum Neck: non-tender, supple Respiratory: clear to auscultation, normal air movement Cardiovascular: regular rate and rhythm Gastrointestinal: non-tender, soft Musculoskeletal: nl extremities to inspection Extremities: No clubbing, No cyanosis, No edema Neurological: nl mental status, nl speech Results Result Diagram: 07/06/16 0640 07/08/16 0710 Results 24 hrs Laboratory Tests Test 07/08/16 07:10 Sodium Level 134 L Potassium Level 4.1 Chloride Level 103 Carbon Dioxide Level 23 Anion Gap 12 Blood Urea Nitrogen 84 H Creatinine 7.82 H Glucose Level 97 Calcium Level 8.6 Total Bilirubin 0.3 Direct Bilirubin 0.00 Indirect Bilirubin 0.3 Aspartate Amino Transf (AST/SGOT) 33 Alanine Aminotransferase (ALT/SGPT) 44 Alkaline Phosphatase 75 Total Protein 6.4 Albumin 3.4 Globulin 3.00 Albumin/Globulin Ratio 1.13 Medications Medications Current Medications Ondansetron HCl (Zofran Inj) 4 mg Q6H PRN IV NAUSEA AND/OR VOMITING; Start 07/04 at 06:30 Aspirin (Aspirin) 81 mg DAILY PO Last administered on 07/08/16 08:52; Admin Dose 81 MG; Start 07/04/16 at 09:00 Acetaminophen (Tylenol Tab) 650 mg Q6H PRN PO PAIN LEVEL 1-3 OR FEVER Last administered on 07/06/16 08:26; Admin Dose 650 MG; Start 07/04/16 at 06:30 Morphine Sulfate (morphine) 2 mg Q4H PRN IV PAIN LEVEL 7-10; Start 07/04/16 at 06:30 Carvedilol (Coreg) 6.25 mg BID PO Last administered on 07/08/16 08:56; Admin Dose 6.25 MG; Start 07/04/16 at 21:00 Hydralazine HCl (Apresoline) 10 mg Q4H PRN IV SBP>160 Last administered on 12:30; Admin Dose 10 MG; Start 07/04/16 at 18:00 Nifedipine (Procardia Xl) 90 mg DAILY PO Last administered on 07/08/16 08:55; Admin Dose 90 MG; Start 07/07/16 at 09:00 Hydralazine HCl (Apresoline) 50 mg TID PO ; Start 07/08/16 at 21:00 Minoxidil 2.5 mg 2.5 mg BID PO ; Start 07/08/16 at 21:00 Sodium Chloride (NS) 1,000 ml @ 80 mls/hr [id number] IV ; Start 07/08/16 at 19:30 ANTOINE ESPINOZA MD Jul 08, 2016 19:49
[2016-07-08] MEDS: SOD CHLORIDE 0.9% 1,000 ML IV SCH (20:20)
[2016-07-08] MEDS: MINOXIDIL 2.5 MG TAB PO SCH (20:23)
--- NOTE | 2016-07-08 22:14 | CARRPT ---
DATE OF PROCEDURE: 07/06/2016 PROCEDURE: Lexiscan stress SPECT. INDICATIONS: Cardiomyopathy. FINDINGS: Baseline heart rate 88 beats per minute. Peak stress heart rate 104 beats per minute. Baseline blood pressure 162/120. Peak stress blood pressure 164/103. Baseline EKG normal sinus rhythm, voltage criteria for left ventricular hypertrophy, T-wave abnormality in lateral leads, which may be due to left ventricular hypertrophy. Stress EKG normal sinus rhythm, nondiagnostic due to baseline T-wave abnormalities, no arrhythmias. CONCLUSIONS: Nondiagnostic EKG results due to baseline EKG abnormalities. Imaging results to be reported separately. Dictated By: ANTOINE ESPINOZA MD SC/IDRIS Conf#: [id number] DID#: [id number] MTDD
[2016-07-09] VITALS (15 sets, daily range): BP systolic 118–168; BP diastolic 36–102; PULSE 83–95; RESP 18–20
[2016-07-09] MEDS: SOD CHLORIDE 0.9% 1,000 ML IV SCH ×2 (08:00→20:30)
[2016-07-09 08:50] LABS: ALBUMIN 3.4 g/dl (3.3-4.9); ALBUMIN/GLOBULIN RATIO 1.17; BILIRUBIN,INDIRECT 0.3 mg/dl (0-1.1); BILIRUBIN,TOTAL 0.3 mg/dl (0.2-1.3); CALCIUM 8.3 mg/dl (8.4-10.2); CREATININE 7.74 mg/dl (0.61-1.24); POTASSIUM 3.9 mmol/L (3.5-5.1); TOTAL PROTEIN 6.3 g/dl (6.1-8.1)
[2016-07-09] MEDS: ASPIRIN 81 MG TAB PO SCH (09:08)
[2016-07-09] MEDS: MINOXIDIL 2.5 MG TAB PO SCH ×2 (09:09→21:00)
[2016-07-09] MEDS: ISOSORBIDE MONONITRATE(SR)30 MG TAB PO SCH (09:10)
[2016-07-09] MEDS: NIFEdipine (XL) 90 MG TAB PO SCH (09:10)
--- NOTE | 2016-07-09 10:50 | CONS ---
Date/Time of Note Date/Time of Note DATE: 07/09/16 TIME: 10:48 Assessment/Plan Assessment/Plan Chief Complaint/Hosp Course - CHRONIC KIDNEY DISEASE III - ACUTE KIDNEY INJURY - HYPERTENSION EMERGENCY - HTN NEPHROSCLEROSIS - THROMBOCYTOPENIA - HEMATURIA - +/- RHABDO - LOW ALBUMIN PLAN: His baseline creatinine has been ~ 2 range ( Latest FEB 2016 ) BP improving Creatinine slightly better ( slowly improving ) Appetite is improving Continue with IV Fluid for now 0.9% @ 80 ml/hr ~ 1.7 Grams of proteinuria ( Possible due to HTN Nephrosclerosis & Uncontrolled BP , ? GN ) He may need a Pulmonary evaluation for possible "SLEEP APNEA" Monitor I/O closely MINOXIDIL 2.5 Mg PO BID added yesterday Problems: Consultation Date/Type/Reason Admit Date/Time Jul 03, 2016 at 23:09 Initial Consult Date 07/05/16 Type of Consultation: NEPHROLOGY Reason for Consultation - ACUTE KIDNEY INJURY - CHRONIC KIDNEY DISEASE - HTN EMERGENCY 24 HR Interval Summary Constitutional: improved, no complaints Exam/Review of Systems Vital Signs Vitals Vital Signs Date Time Temp Pulse Resp B/P Pulse Ox O2 Delivery O2 Flow Rate FiO2 07/09/16 09:07 168/101 07/09/16 08:44 83 07/09/16 08:32 98.2 20 98 07/08/16 15:25 Room Air Intake and Output 07/08/16 07/08/16 07/09/16 15:00 23:00 07:00 Intake Total 1620 ml 930 ml Output Total 400 ml 1000 ml Balance 1220 ml -70 ml Exam Constitutional: alert, oriented Psych: no complaints Head: normocephalic Neck: supple Respiratory: crackles/rales Cardiovascular: regular rate and rhythm, systolic murmur Gastrointestinal: soft Results Result Diagram: 07/06/16 0640 07/09/16 0730 Results 24 hrs Laboratory Tests Test 07/09/16 07:30 Sodium Level 131 L Potassium Level 3.9 Chloride Level 101 Carbon Dioxide Level 21 Anion Gap 13 Blood Urea Nitrogen 82 H Creatinine 7.74 H Glucose Level 88 Calcium Level 8.3 L Total Bilirubin 0.3 Direct Bilirubin 0.00 Indirect Bilirubin 0.3 Aspartate Amino Transf (AST/SGOT) 25 Alanine Aminotransferase (ALT/SGPT) 41 Alkaline Phosphatase 72 Total Protein 6.3 Albumin 3.4 Globulin 2.90 Albumin/Globulin Ratio 1.17 Medications Medications Current Medications Ondansetron HCl (Zofran Inj) 4 mg Q6H PRN IV NAUSEA AND/OR VOMITING; Start 07/04 at 06:30 Aspirin (Aspirin) 81 mg DAILY PO Last administered on 07/09/16 09:08; Admin Dose 81 MG; Start 07/04/16 at 09:00 Acetaminophen (Tylenol Tab) 650 mg Q6H PRN PO PAIN LEVEL 1-3 OR FEVER Last administered on 07/06/16 08:26; Admin Dose 650 MG; Start 07/04/16 at 06:30 Morphine Sulfate (morphine) 2 mg Q4H PRN IV PAIN LEVEL 7-10; Start 07/04/16 at 06:30 Hydralazine HCl (Apresoline) 10 mg Q4H PRN IV SBP>160 Last administered on 12:30; Admin Dose 10 MG; Start 07/04/16 at 18:00 Nifedipine (Procardia Xl) 90 mg DAILY PO Last administered on 07/09/16 09:10; Admin Dose 90 MG; Start 07/07/16 at 09:00 Hydralazine HCl (Apresoline) 50 mg TID PO Last administered on 07/09/16 09:09; Admin Dose 50 MG; Start 07/08/16 at 21:00 Minoxidil 2.5 mg 2.5 mg BID PO Last administered on 07/09/16 09:09; Admin Dose 2.5 MG; Start 07/08/16 at 21:00 Sodium Chloride (NS) 1,000 ml @ 80 mls/hr [id number] IV Last administered on 20:20; Admin Dose 80 MLS/HR; Start 07/08/16 at 19:30 Carvedilol (Coreg) 12.5 mg BID PO Last administered on 07/09/16 09:09; Admin Dose 12.5 MG; Start 07/08/16 at 21:00 Isosorbide Mononitrate (Imdur) 30 mg DAILY PO Last administered on 07/09/16 09: 10; Admin Dose 30 MG; Start 07/09/16 at 09:00 MIKE ROLDAN MD Jul 09, 2016 10:50
--- NOTE | 2016-07-09 15:33 | CONS ---
Date/Time of Note Date/Time of Note DATE: 07/09/16 TIME: 15:32 Assessment/Plan Assessment/Plan Chief Complaint/Hosp Course Assessment: Hypertensive emergency - secondary to stopping anti-hypertensive medications ( especially rebound effect of clonidine), blood pressures now improved NSTEMI - likely type 2 in setting of hypertensive emergency and renal failure Nonischemic cardiomyopathy, LVEF 40-45% - likely due to hypertensive heart disease Acute kidney injury on chronic kidney disease - per nephrology Abnormal brain CT and MRI - neurology evaluation Thrombocytopenia - unclear etiology, improving History of alcohol abuse Tobacco abuse Medical noncompliance Recommendations: -echocardiogram showed LVEF 40-45% with global hypokinesis, moderate LVH -Lexiscan SPECT negative for perfusion defects -continue carvedilol 12.5mg BID, hydralazine 50mg TID, Imdur 30mg daily, nifedipine XL 90mg daily, minoxidil 2.5mg BID -continue aspirin 81mg daily -discharge planning per primary team -will follow up as needed Problems: Consultation Date/Type/Reason Admit Date/Time Jul 03, 2016 at 23:09 Initial Consult Date 07/05/16 Type of Consultation: Cardiology 24 HR Interval Summary Free Text/Dictation Blood pressures improved. No chest pain or shortness of breath. Detailed Summary Additional Comments 14 point review of systems without changes. Exam/Review of Systems Vital Signs Vitals Vital Signs Date Time Temp Pulse Resp B/P Pulse Ox O2 Delivery O2 Flow Rate FiO2 07/09/16 15:27 98.0 90 18 146/88 95 07/08/16 15:25 Room Air Intake and Output 07/08/16 07/08/16 07/09/16 15:00 23:00 07:00 Intake Total 1620 ml 930 ml Output Total 400 ml 1000 ml Balance 1220 ml -70 ml Exam Constitutional: alert, well developed Psych: nl mood/affect, no complaints Head: atraumatic, normocephalic Eyes: nl conjunctiva, nl lids ENMT: nl external ears & nose, nl nasal mucosa & septum Neck: non-tender, supple Respiratory: clear to auscultation, normal air movement Cardiovascular: regular rate and rhythm Gastrointestinal: non-tender, soft Musculoskeletal: nl extremities to inspection Extremities: No clubbing, No cyanosis, No edema Neurological: nl mental status, nl speech Results Result Diagram: 07/06/16 0640 07/09/16 0730 Results 24 hrs Laboratory Tests Test 07/09/16 07:30 Sodium Level 131 L Potassium Level 3.9 Chloride Level 101 Carbon Dioxide Level 21 Anion Gap 13 Blood Urea Nitrogen 82 H Creatinine 7.74 H Glucose Level 88 Calcium Level 8.3 L Total Bilirubin 0.3 Direct Bilirubin 0.00 Indirect Bilirubin 0.3 Aspartate Amino Transf (AST/SGOT) 25 Alanine Aminotransferase (ALT/SGPT) 41 Alkaline Phosphatase 72 Total Protein 6.3 Albumin 3.4 Globulin 2.90 Albumin/Globulin Ratio 1.17 Medications Medications Current Medications Ondansetron HCl (Zofran Inj) 4 mg Q6H PRN IV NAUSEA AND/OR VOMITING; Start 07/04 at 06:30 Aspirin (Aspirin) 81 mg DAILY PO Last administered on 07/09/16 09:08; Admin Dose 81 MG; Start 07/04/16 at 09:00 Acetaminophen (Tylenol Tab) 650 mg Q6H PRN PO PAIN LEVEL 1-3 OR FEVER Last administered on 07/06/16 08:26; Admin Dose 650 MG; Start 07/04/16 at 06:30 Morphine Sulfate (morphine) 2 mg Q4H PRN IV PAIN LEVEL 7-10; Start 07/04/16 at 06:30 Hydralazine HCl (Apresoline) 10 mg Q4H PRN IV SBP>160 Last administered on 12:30; Admin Dose 10 MG; Start 07/04/16 at 18:00 Nifedipine (Procardia Xl) 90 mg DAILY PO Last administered on 07/09/16 09:10; Admin Dose 90 MG; Start 07/07/16 at 09:00 Hydralazine HCl (Apresoline) 50 mg TID PO Last administered on 07/09/16 13:33; Admin Dose 50 MG; Start 07/08/16 at 21:00 Minoxidil 2.5 mg 2.5 mg BID PO Last administered on 07/09/16 09:09; Admin Dose 2.5 MG; Start 07/08/16 at 21:00 Sodium Chloride (NS) 1,000 ml @ 80 mls/hr [id number] IV Last administered on 20:20; Admin Dose 80 MLS/HR; Start 07/08/16 at 19:30 Carvedilol (Coreg) 12.5 mg BID PO Last administered on 07/09/16 09:09; Admin Dose 12.5 MG; Start 07/08/16 at 21:00 Isosorbide Mononitrate (Imdur) 30 mg DAILY PO Last administered on 07/09/16 09: 10; Admin Dose 30 MG; Start 07/09/16 at 09:00 ANTOINE ESPINOZA MD Jul 09, 2016 15:33
--- NOTE | 2016-07-09 15:41 | PN ---
Date/Time of Note Date/Time of Note DATE: 07/09/16 TIME: 15:38 Assessment/Plan VTE Prophylaxis VTE Prophylaxis Intervention: heparin Lines/Catheters IV [facility]from [facility] Saline Lock Urinary Cath still in place: No Assessment/Plan Assessment/Plan 1. Acute on chronic renal failure, Dr. Hummel needs to make decision about HD, if not HD, patient is ready for discharge. 2. Hypertensive emergency, improving, continue antihypertensives 3. Mildly elevated troponin, renal failure related, negative stress thallium test 4. Thrombocytopenia, resolved 5. Abnormal findings on CT and MRI, discussed with neurology today 6. History of alcohol abuse 7. Tobacco abuse 8. DVT prophylaxis: heparin 9. Patient needs to have outpatient sleep study to be qualified for CPAP Subjective 24 Hr Interval Summary Free Text/Dictation no complaint. No shortness of breath Exam/Review of Systems Vital Signs Vitals Vital Signs Date Time Temp Pulse Resp B/P Pulse Ox O2 Delivery O2 Flow Rate FiO2 07/09/16 15:27 98.0 90 18 146/88 95 07/08/16 15:25 Room Air Intake and Output 07/08/16 07/08/16 07/09/16 15:00 23:00 07:00 Intake Total 1620 ml 930 ml Output Total 400 ml 1000 ml Balance 1220 ml -70 ml Exam Constitutional: alert, oriented, well developed Psych: nl mood/affect, no complaints Head: atraumatic, normocephalic Eyes: EOMI, PERRL, nl conjunctiva, nl lids ENMT: nl external ears & nose, nl lips & teeth, nl nasal mucosa & septum Neck: non-tender, supple Respiratory: clear to auscultation, normal air movement, No congested cough, No crackles/rales, No diminished breath sounds, No intercostal retraction, No labored breathing, No other, No respirations, No tactile fremitus, No wheezing Cardiovascular: nl pulses, regular rate and rhythm, No S3, No S4, No bruits, No diastolic murmur, No edema, No gallop, No irregular rhythm, No jugular venous distention (JVD), No murmurs/extra sounds, No other, No rub, No systolic murmur Gastrointestinal: nl liver, spleen, non-tender, soft, No ascites, No bowel sounds, No distended, No firm, No hepatomegaly, No mass , No other, No rebound or guarding, No splenomegaly, No surgical scars, No tender Musculoskeletal: nl extremities to inspection Extremities: normal pulses, No calf tenderness, No clubbing, No cyanosis, No edema, No other, No palpable cord, No pitting pedal edema, No tenderness Neurological: [employer]ER II-XII intact, nl mental status, nl speech, nl strength Skin: nl turgor Lymph: nl lymph nodes Results Result Diagram: 07/06/16 0640 07/09/16 0730 Results 24 hrs Laboratory Tests Test 07/09/16 07:30 Sodium Level 131 L Potassium Level 3.9 Chloride Level 101 Carbon Dioxide Level 21 Anion Gap 13 Blood Urea Nitrogen 82 H Creatinine 7.74 H Glucose Level 88 Calcium Level 8.3 L Total Bilirubin 0.3 Direct Bilirubin 0.00 Indirect Bilirubin 0.3 Aspartate Amino Transf (AST/SGOT) 25 Alanine Aminotransferase (ALT/SGPT) 41 Alkaline Phosphatase 72 Total Protein 6.3 Albumin 3.4 Globulin 2.90 Albumin/Globulin Ratio 1.17 Medications Medications Current Medications Ondansetron HCl (Zofran Inj) 4 mg Q6H PRN IV NAUSEA AND/OR VOMITING; Start 07/04 at 06:30 Aspirin (Aspirin) 81 mg DAILY PO Last administered on 07/09/16 09:08; Admin Dose 81 MG; Start 07/04/16 at 09:00 Acetaminophen (Tylenol Tab) 650 mg Q6H PRN PO PAIN LEVEL 1-3 OR FEVER Last administered on 07/06/16 08:26; Admin Dose 650 MG; Start 07/04/16 at 06:30 Morphine Sulfate (morphine) 2 mg Q4H PRN IV PAIN LEVEL 7-10; Start 07/04/16 at 06:30 Hydralazine HCl (Apresoline) 10 mg Q4H PRN IV SBP>160 Last administered on 12:30; Admin Dose 10 MG; Start 07/04/16 at 18:00 Nifedipine (Procardia Xl) 90 mg DAILY PO Last administered on 07/09/16 09:10; Admin Dose 90 MG; Start 07/07/16 at 09:00 Hydralazine HCl (Apresoline) 50 mg TID PO Last administered on 07/09/16 13:33; Admin Dose 50 MG; Start 07/08/16 at 21:00 Minoxidil 2.5 mg 2.5 mg BID PO Last administered on 07/09/16 09:09; Admin Dose 2.5 MG; Start 07/08/16 at 21:00 Sodium Chloride (NS) 1,000 ml @ 80 mls/hr [id number] IV Last administered on 20:20; Admin Dose 80 MLS/HR; Start 07/08/16 at 19:30 Carvedilol (Coreg) 12.5 mg BID PO Last administered on 07/09/16 09:09; Admin Dose 12.5 MG; Start 07/08/16 at 21:00 Isosorbide Mononitrate (Imdur) 30 mg DAILY PO Last administered on 07/09/16 09: 10; Admin Dose 30 MG; Start 07/09/16 at 09:00 PAULIE DELANEY MD Jul 09, 2016 15:41
[2016-07-10] VITALS (12 sets, daily range): BP systolic 136–159; BP diastolic 79–106; PULSE 87–100; RESP 16–20
[2016-07-10] MEDS: ASPIRIN 81 MG TAB PO SCH (08:22)
[2016-07-10] MEDS: MINOXIDIL 2.5 MG TAB PO SCH ×2 (08:22→20:42)
[2016-07-10] MEDS: ISOSORBIDE MONONITRATE(SR)30 MG TAB PO SCH (08:23)
[2016-07-10] MEDS: NIFEdipine (XL) 90 MG TAB PO SCH (08:23)
[2016-07-10] MEDS: SOD CHLORIDE 0.9% 1,000 ML IV SCH (08:28)
--- NOTE | 2016-07-10 11:33 | PN ---
Date/Time of Note Date/Time of Note DATE: 07/10/16 TIME: 11:31 Assessment/Plan VTE Prophylaxis VTE Prophylaxis Intervention: ambulation Lines/Catheters IV [facility] Type (from [facility] Saline Lock Urinary Cath still in place: No Assessment/Plan Chief Complaint/Hosp Course Assessment/Plan 1. Acute on chronic renal failure, awaiting renal recommendations regarding hemodialysis 2. Hypertensive emergency, blood pressure control still remains somewhat erratic 3. Mildly elevated troponin, renal failure related, negative stress thallium test 4. Thrombocytopenia, resolved 5. Abnormal findings on CT and MRI, discussed with neurology today 6. History of alcohol abuse 7. Tobacco abuse 8. DVT prophylaxis: heparin 9. Outpatient sleep study for obstructive sleep apnea Discharge home once cleared by nephrology Problems: Subjective 24 Hr Interval Summary Free Text/Dictation Patient comfortable this morning sitting up in bed comfortable no respiratory distress Exam/Review of Systems Vital Signs Vitals Vital Signs Date Time Temp Pulse Resp B/P Pulse Ox O2 Delivery O2 Flow Rate FiO2 07/10/16 08:31 87 07/10/16 07:52 98.3 20 154/96 96 07/08/16 15:25 Room Air Intake and Output 07/09/16 07/09/16 07/10/16 15:00 23:00 07:00 Intake Total 300 ml 1200 ml Output Total 550 ml 1300 ml Balance -250 ml -100 ml Exam GENERAL: Well-nourished well-developed gentleman comfortable at rest VITAL SIGNS: per chart NECK: Supple. No JVD or lymphadenopathy. CARDIAC EXAM: S1, S2. No added sounds or murmurs. CHEST: clear bilaterally, No added sounds, rales or wheezes ABDOMEN: Soft, nontender. No guarding or rebound. EXTREMITIES: No cyanosis, clubbing or edema. NEUROLOGIC: Generalized weakness. No focal deficits. Results Result Diagram: 07/06/16 0640 07/09/16 0730 Medications Medications Current Medications Ondansetron HCl (Zofran Inj) 4 mg Q6H PRN IV NAUSEA AND/OR VOMITING; Start 07/04 at 06:30 Aspirin (Aspirin) 81 mg DAILY PO Last administered on 07/10/16 08:22; Admin Dose 81 MG; Start 07/04/16 at 09:00 Acetaminophen (Tylenol Tab) 650 mg Q6H PRN PO PAIN LEVEL 1-3 OR FEVER Last administered on 07/06/16 08:26; Admin Dose 650 MG; Start 07/04/16 at 06:30 Morphine Sulfate (morphine) 2 mg Q4H PRN IV PAIN LEVEL 7-10; Start 07/04/16 at 06:30 Hydralazine HCl (Apresoline) 10 mg Q4H PRN IV SBP>160 Last administered on 12:30; Admin Dose 10 MG; Start 07/04/16 at 18:00 Nifedipine (Procardia Xl) 90 mg DAILY PO Last administered on 07/10/16 08:23; Admin Dose 90 MG; Start 07/07/16 at 09:00 Hydralazine HCl (Apresoline) 50 mg TID PO Last administered on 07/10/16 08:23; Admin Dose 50 MG; Start 07/08/16 at 21:00 Minoxidil (Loniten) 2.5 mg BID PO Last administered on 07/10/16 08:22; Admin Dose 2.5 MG; Start 07/08/16 at 21:00 Carvedilol (Coreg) 12.5 mg BID PO Last administered on 07/10/16 08:24; Admin Dose 12.5 MG; Start 07/08/16 at 21:00 Isosorbide Mononitrate (Imdur) 30 mg DAILY PO Last administered on 07/10/16 08: 23; Admin Dose 30 MG; Start 07/09/16 at 09:00 CHARLEE SANDERS MD, [facility] Jul 10, 2016 11:33
[2016-07-10] MEDS: morphine 2 MG INJ IV PRN (20:45)
[2016-07-11] VITALS (12 sets, daily range): BP systolic 120–179; BP diastolic 71–103; PULSE 80–120; RESP 16–19
[2016-07-11] MEDS: morphine 2 MG INJ IV PRN ×2 (03:36→20:11)
[2016-07-11] MEDS: ASPIRIN 81 MG TAB PO SCH (08:03)
[2016-07-11] MEDS: NIFEdipine (XL) 90 MG TAB PO SCH (08:03)
[2016-07-11] MEDS: MINOXIDIL 2.5 MG TAB PO SCH ×2 (08:04→21:24)
[2016-07-11] MEDS: ISOSORBIDE MONONITRATE(SR)30 MG TAB PO SCH (08:04)
--- NOTE | 2016-07-11 09:32 | PN ---
Date/Time of Note Date/Time of Note DATE: 07/11/16 TIME: 09:27 Assessment/Plan VTE Prophylaxis VTE Prophylaxis Intervention: anti-embolic stocking Lines/Catheters IV [facility] Type (from [facility]): Saline Lock Urinary Cath still in place: No Assessment/Plan Chief Complaint/Hosp Course denies any chest pain or shortness of breath Problems: Assessment/Plan patient wants ot go home and does not want to stay in hospital he will follow up to see i have ordred stat labs i have told him to NOT take any K contining diets Subjective 24 Hr Interval Summary Free Text/Dictation I have spoken to him extensively and i told him to follow up with i have ordred STAT LABS NOW as well as keyexalate to prevent any hyperkalmeia i have instructed him in detail to avoid any K contianing diets i have told him to contact office tomorrow and see him in the next 2 -3 days Exam/Review of Systems Vital Signs Vitals Vital Signs Date Time Temp Pulse Resp B/P Pulse Ox O2 Delivery O2 Flow Rate FiO2 07/11/16 08:00 92 07/11/16 07:30 98.6 19 145/100 95 07/08/16 15:25 Room Air Intake and Output 07/10/16 07/10/16 07/11/16 15:00 23:00 07:00 Intake Total 300 ml Balance 300 ml Results Result Diagram: 07/09/16 0730 Medications Medications Current Medications Ondansetron HCl (Zofran Inj) 4 mg Q6H PRN IV NAUSEA AND/OR VOMITING; Start 07/04 at 06:30 Aspirin (Aspirin) 81 mg DAILY PO Last administered on 07/11/16 08:03; Admin Dose 81 MG; Start 07/04/16 at 09:00 Acetaminophen (Tylenol Tab) 650 mg Q6H PRN PO PAIN LEVEL 1-3 OR FEVER Last administered on 07/06/16 08:26; Admin Dose 650 MG; Start 07/04/16 at 06:30 Morphine Sulfate (morphine) 2 mg Q4H PRN IV PAIN LEVEL 7-10 Last administered on 07/11/16 03:36; Admin Dose 2 MG; Start 07/04/16 at 06:30 Hydralazine HCl (Apresoline) 10 mg Q4H PRN IV SBP>160 Last administered on 12:30; Admin Dose 10 MG; Start 07/04/16 at 18:00 Nifedipine (Procardia Xl) 90 mg DAILY PO Last administered on 07/11/16 08:03; Admin Dose 90 MG; Start 07/07/16 at 09:00 Hydralazine HCl (Apresoline) 50 mg TID PO Last administered on 07/11/16 08:04; Admin Dose 50 MG; Start 07/08/16 at 21:00 Minoxidil (Loniten) 2.5 mg BID PO Last administered on 07/11/16 08:04; Admin Dose 2.5 MG; Start 07/08/16 at 21:00 Carvedilol (Coreg) 12.5 mg BID PO Last administered on 07/11/16 08:04; Admin Dose 12.5 MG; Start 07/08/16 at 21:00 Isosorbide Mononitrate (Imdur) 30 mg DAILY PO Last administered on 07/11/16 08: 04; Admin Dose 30 MG; Start 07/09/16 at 09:00 PIOTR SOLORIO MD Jul 11, 2016 09:32
[2016-07-11] MEDS ORDERED: NA POLYST SULFON 15 GM/60 ML BTL PO ONE (10:00)
[2016-07-11 10:32] LABS: POTASSIUM 3.5 mmol/L (3.5-5.1)
[2016-07-11 10:35] LABS: CREATININE 7.88 mg/dl (0.61-1.24)
[2016-07-11 10:36] LABS: CALCIUM 8.5 mg/dl (8.4-10.2)
--- NOTE | 2016-07-11 16:03 | PN ---
DATE: 07/11/2016 INTERNAL MEDICINE FOLLOW UP SUBJECTIVE: Chart reviewed. Events noted. Nephrology followup noted. Patient is quite anxious to go home. Current potassium is 3.5. PHYSICAL EXAMINATION: VITAL SIGNS: Blood pressure 144/71, pulse 96, respiration 19, temperature 97.9. Currently saturati ng 96% on room air. HEENT: Pupils are equal and reactive to light. NECK: Supple, no JVD noted, no cervical adenopathy noted. No carotid bruits heard. LUNGS: Fair breath sounds bilaterally. CARDIOVASCULAR: S1, S2 normal. ABDOMEN: Soft, nontender. No organomegaly or masses noted. EXTREMITIES: No clubbing, cyanosis, or edema noted. NEUROLOGIC: No focal deficits. LABORATORY DATA: Sodium 135, potassium 3.5, chloride 97, CO2 of 25, BUN 88, creatinine 7.88, glucos e 142. IMPRESSION: 1. Acute on chronic renal failure. 2. Hypertensive emergency, now resolved. 3. Thrombocytopenia. 4. History of alcohol abuse. 5. History of tobacco abuse. 6. Rule out obstructive sleep apnea. RECOMMENDATIONS: 1. Nephrology followup noted. 2. Await a final decision regarding his hemodialysis per nephrology. The patient will likely go [place] and follow up with Dr. Hummel as an outpatient to pursue further treatment. Above discussed wit h the staff in detail. Dictated By: BARB GREGORY MD, MA/IDRIS Conf#: [id number] DID#: [id number] CC: BINA MARIN MD;*EndCC*
--- NOTE | 2016-07-11 17:40 | QN ---
Documentation Comment Patient desires 2nd opinion from different [employer] Technician. Spoke with Dr. Kirsten Flores, he will see patient tomorrow. ISH MACDONALD Jul 11, 2016 17:40
[2016-07-12] VITALS (10 sets, daily range): BP systolic 126–148; BP diastolic 70–107; PULSE 94–110; RESP 16–18
[2016-07-12] MEDS: ASPIRIN 81 MG TAB PO SCH (08:25)
[2016-07-12] MEDS: ISOSORBIDE MONONITRATE(SR)30 MG TAB PO SCH (08:26)
[2016-07-12] MEDS: MINOXIDIL 2.5 MG TAB PO SCH (08:26)
[2016-07-12] MEDS: NIFEdipine (XL) 90 MG TAB PO SCH (08:26)
--- NOTE | 2016-07-12 13:43 | PN ---
Date/Time of Note Date/Time of Note DATE: 07/12/16 TIME: 13:37 Assessment/Plan VTE Prophylaxis VTE Prophylaxis Intervention: LMWH Lines/Catheters IV [facility]ter Type (from [facility]): Saline Lock Urinary Cath still in place: No Assessment/Plan Chief Complaint/Hosp Course Subjective: No dyspnea or chest pain. His nausea, abd distention, and edema have stabilized. Has weakness of his legs bilaterally. Objective:vss; rate controlled. Physical exam No pallor JVD Appears reg. No m/r/g Dimin bs bilat. Abd- bs + nt; mild distended. no r/r/g Mild edema. No Homans sign. Assessment and plan 1. Anasarca, Decompensated. Etio? Severe pulmonary hypertension related? Stable cont diuretics. 2. Severe pulmonary hypertension. Secondary? Check AMINA/RF. Consider V/Q. 3. A fib w RVR. Rx #2. EF noted. DC home once ok w cardio. Outpt LFTs/ TSH/ ophthl eval while on amiod. 4. Past alcoholism. No evidence of withdrawal. On b1. 5. Chr liver dz sequelae w ascites/probable cirrhosis/suspect portal htn. 6. Chronic hypertension 7. Diabetes/metabolic syndrome 8. Anemia 9. Deconditioning; ambulate, PT as needed. Problems: Exam/Review of Systems Vital Signs Vitals Vital Signs Date Time Temp Pulse Resp B/P Pulse Ox O2 Delivery O2 Flow Rate FiO2 07/12/16 12:29 94 07/12/16 11:40 98.6 18 129/70 94 07/08/16 15:25 Room Air Intake and Output 07/11/16 07/11/16 07/12/16 14:59 22:59 06:59 Intake Total 2000 ml 700 ml Output Total 950 ml 900 ml Balance 1050 ml -200 ml Results Result Diagram: 07/11/16 1009 Medications Medications Current Medications Ondansetron HCl (Zofran Inj) 4 mg Q6H PRN IV NAUSEA AND/OR VOMITING; Start 07/04 at 06:30 Aspirin (Aspirin) 81 mg DAILY PO Last administered on 07/12/16 08:25; Admin Dose 81 MG; Start 07/04/16 at 09:00 Acetaminophen (Tylenol Tab) 650 mg Q6H PRN PO PAIN LEVEL 1-3 OR FEVER Last administered on 07/06/16 08:26; Admin Dose 650 MG; Start 07/04/16 at 06:30 Morphine Sulfate (morphine) 2 mg Q4H PRN IV PAIN LEVEL 7-10 Last administered on 07/11/16 20:11; Admin Dose 2 MG; Start 07/04/16 at 06:30 Hydralazine HCl (Apresoline) 10 mg Q4H PRN IV SBP>160 Last administered on 12:30; Admin Dose 10 MG; Start 07/04/16 at 18:00 Nifedipine (Procardia Xl) 90 mg DAILY PO Last administered on 07/12/16 08:26; Admin Dose 90 MG; Start 07/07/16 at 09:00 Hydralazine HCl (Apresoline) 50 mg TID PO Last administered on 07/12/16 12:27 ; Admin Dose 50 MG; Start 07/08/16 at 21:00 Minoxidil (Loniten) 2.5 mg BID PO Last administered on 07/12/16 08:26; Admin Dose 2.5 MG; Start 07/08/16 at 21:00 Carvedilol (Coreg) 12.5 mg BID PO Last administered on 07/12/16 08:27; Admin Dose 12.5 MG; Start 07/08/16 at 21:00 Isosorbide Mononitrate (Imdur) 30 mg DAILY PO Last administered on 07/12/16 08 :26; Admin Dose 30 MG; Start 07/09/16 at 09:00 ZACARIAS BOYD MD Jul 12, 2016 13:43
--- NOTE | 2016-07-12 13:51 | PN ---
Date/Time of Note Date/Time of Note DATE: 07/12/16 TIME: 13:47 Assessment/Plan VTE Prophylaxis VTE Prophylaxis Intervention: LMWH Lines/Catheters IV [facility]from [facility] Saline Lock Urinary Cath still in place: No Assessment/Plan Chief Complaint/Hosp Course Subjective: No dyspnea, chest pain, or edema. No confusion either. Objective:vss Physical exam No pallor JVD Appears reg. No m/r/g ctab. BS+ nt; nd. no r/r/g No edema. Assessment and plan 1. Acute renal failure. Stable consider dialysis. 2. CKD 3/4 with progression, hypertensive urgency, hematuria, edema. Consider initiation of dialysis in stable setting. Hepatitis panel ordered. 3. Chronic hypertension w hypertensive heart disease/nonischemic cardiomyopathy. EF 40% 4. Chronic medication nonadherence 5. Past alcoholism 6. Tobacco abuse 7. SAQIB? 8. Thrombocytopenia, mild follow 9. False positive troponin due to hypertensive urgency. Stress test done ok. EF 40%. 10. Possible partial empty sella syndrome? MRI at some point 11. Anemia Problems: Exam/Review of Systems Vital Signs Vitals Vital Signs Date Time Temp Pulse Resp B/P Pulse Ox O2 Delivery O2 Flow Rate FiO2 07/12/16 12:29 94 07/12/16 11:40 98.6 18 129/70 94 07/08/16 15:25 Room Air Intake and Output 07/11/16 07/11/16 07/12/16 15:00 23:00 07:00 Intake Total 2000 ml 700 ml Output Total 950 ml 900 ml Balance 1050 ml -200 ml Results Result Diagram: 07/11/16 1009 Medications Medications Current Medications Ondansetron HCl (Zofran Inj) 4 mg Q6H PRN IV NAUSEA AND/OR VOMITING; Start 07/04 at 06:30 Aspirin (Aspirin) 81 mg DAILY PO Last administered on 07/12/16 08:25; Admin Dose 81 MG; Start 07/04/16 at 09:00 Acetaminophen (Tylenol Tab) 650 mg Q6H PRN PO PAIN LEVEL 1-3 OR FEVER Last administered on 07/06/16 08:26; Admin Dose 650 MG; Start 07/04/16 at 06:30 Morphine Sulfate (morphine) 2 mg Q4H PRN IV PAIN LEVEL 7-10 Last administered on 07/11/16 20:11; Admin Dose 2 MG; Start 07/04/16 at 06:30 Hydralazine HCl (Apresoline) 10 mg Q4H PRN IV SBP>160 Last administered on 12:30; Admin Dose 10 MG; Start 07/04/16 at 18:00 Nifedipine (Procardia Xl) 90 mg DAILY PO Last administered on 07/12/16 08:26; Admin Dose 90 MG; Start 07/07/16 at 09:00 Hydralazine HCl (Apresoline) 50 mg TID PO Last administered on 07/12/16 12:27 ; Admin Dose 50 MG; Start 07/08/16 at 21:00 Minoxidil (Loniten) 2.5 mg BID PO Last administered on 07/12/16 08:26; Admin Dose 2.5 MG; Start 07/08/16 at 21:00 Carvedilol (Coreg) 12.5 mg BID PO Last administered on 07/12/16 08:27; Admin Dose 12.5 MG; Start 07/08/16 at 21:00 Isosorbide Mononitrate (Imdur) 30 mg DAILY PO Last administered on 07/12/16 08 :26; Admin Dose 30 MG; Start 07/09/16 at 09:00 ZACARIAS BOYD MD Jul 12, 2016 13:50
[2016-07-12] MEDS ORDERED: ZOLPIDEM 5 MG TAB PO PRN (14:00)
[2016-07-12] MEDS ORDERED: DOCUSATE SODIUM 10 MG/ML (10ML CUP) PO PRN (14:00)
[2016-07-12] MEDS ORDERED: NA POLYST SULFON 15 GM/60 ML BTL PO SCH (16:00)
--- NOTE | 2016-07-12 16:04 | CONS ---
Date/Time of Note Date/Time of Note DATE: 07/12/16 TIME: 16:01 Assessment/Plan Assessment/Plan Chief Complaint/Hosp Course - CHRONIC KIDNEY DISEASE III - ACUTE KIDNEY INJURY - HYPERTENSION EMERGENCY - HTN NEPHROSCLEROSIS - THROMBOCYTOPENIA - HEMATURIA - +/- RHABDO - LOW ALBUMIN PLAN: His baseline creatinine has been ~ 2 range ( Latest FEB 2016 ) BP improving Creatinine slightly better ( slowly improving ) Appetite is improving OK to discharge home from renal point Will check his BMP in 2-3 days as out patient Will follow up with me next week on Tuesday Start as out patient "KAYEXALATE 15 Grams PO BIW" just to make sure his potassium stays stable Problems: Consultation Date/Type/Reason Admit Date/Time Jul 03, 2016 at 23:09 Initial Consult Date 07/05/16 Type of Consultation: NEPHROLOGY Reason for Consultation - CKD III/ IV - INGE ( ACUTE KIDNEY INJURY ) 24 HR Interval Summary Constitutional: improved, no complaints Exam/Review of Systems Vital Signs Vitals Vital Signs Date Time Temp Pulse Resp B/P Pulse Ox O2 Delivery O2 Flow Rate FiO2 07/12/16 12:29 94 07/12/16 11:40 98.6 18 129/70 94 07/08/16 15:25 Room Air Intake and Output 07/11/16 07/11/16 07/12/16 15:00 23:00 07:00 Intake Total 2000 ml 700 ml Output Total 950 ml 900 ml Balance 1050 ml -200 ml Exam Constitutional: alert, oriented, well developed Psych: no complaints Head: normocephalic Eyes: nl conjunctiva Neck: supple Respiratory: crackles/rales Cardiovascular: regular rate and rhythm, systolic murmur Gastrointestinal: soft Results Result Diagram: 07/11/16 1009 Medications Medications Current Medications Ondansetron HCl (Zofran Inj) 4 mg Q6H PRN IV NAUSEA AND/OR VOMITING; Start 07/04 at 06:30 Aspirin (Aspirin) 81 mg DAILY PO Last administered on 07/12/16 08:25; Admin Dose 81 MG; Start 07/04/16 at 09:00 Acetaminophen (Tylenol Tab) 650 mg Q6H PRN PO PAIN LEVEL 1-3 OR FEVER Last administered on 07/06/16 08:26; Admin Dose 650 MG; Start 07/04/16 at 06:30 Morphine Sulfate (morphine) 2 mg Q4H PRN IV PAIN LEVEL 7-10 Last administered on 07/11/16 20:11; Admin Dose 2 MG; Start 07/04/16 at 06:30 Hydralazine HCl (Apresoline) 10 mg Q4H PRN IV SBP>160 Last administered on 12:30; Admin Dose 10 MG; Start 07/04/16 at 18:00 Nifedipine (Procardia Xl) 90 mg DAILY PO Last administered on 07/12/16 08:26; Admin Dose 90 MG; Start 07/07/16 at 09:00 Hydralazine HCl (Apresoline) 50 mg TID PO Last administered on 07/12/16 12:27 ; Admin Dose 50 MG; Start 07/08/16 at 21:00 Minoxidil (Loniten) 2.5 mg BID PO Last administered on 07/12/16 08:26; Admin Dose 2.5 MG; Start 07/08/16 at 21:00 Carvedilol (Coreg) 12.5 mg BID PO Last administered on 07/12/16 08:27; Admin Dose 12.5 MG; Start 07/08/16 at 21:00 Isosorbide Mononitrate (Imdur) 30 mg DAILY PO Last administered on 07/12/16 08 :26; Admin Dose 30 MG; Start 07/09/16 at 09:00 Docusate Sodium (Colace Liquid Cup) 100 mg BID PRN PO CONSTIPATION; Start 07/12 at 14:00 Zolpidem Tartrate (Ambien) 5 mg HS PRN PO INSOMNIA; Start 07/12/16 at 14:00 MIKE ROLDAN MD Jul 12, 2016 16:04
--- NOTE | 2016-07-12 17:11 | PDOCDIS ---
Discharge Instructions DIAGNOSIS Discharge Diagnosis: HTN/ RENAL FAILURE CONDITION Patient Condition: Good HOME CARE INSTRUCTIONS: Special Diet: cardiac/ LOW SALT CHOLESTEROLYour diet recommendation is: low potassium diet; no alcohol. no motrin/advil. ACTIVITY: Activity Restrictions: Slowly Increase Activity Do not Drive FOLLOW UP/APPOINTMENTS Appointments Appt Dr Hummel 1wk LAB- bmp -as directed. Take Kayexylate every tuesday & . Appt primary 1week. ZACARIAS BOYD MD Jul 12, 2016 17:10
[2016-07-12] MEDS ORDERED: ISOS30TA5 PO (17:14)
[2016-07-12] MEDS ORDERED: HYDR-3672 PO (17:14)
[2016-07-12] MEDS ORDERED: ASPI81TA3 PO (17:14)
[2016-07-12] MEDS ORDERED: ACET325T40 PO (17:14)
[2016-07-12] MEDS ORDERED: MINO2.5T16 PO (17:14)
[2016-07-12] MEDS ORDERED: NIFE90TA PO (17:14)
[2016-07-12] MEDS ORDERED: CARV12.579 PO (17:14)
[2016-07-12] MEDS ORDERED: KAYPO PO (17:14)
--- NOTE | 2016-07-13 04:07 | DS ---
DATE OF ADMISSION: 07/03/2016 DATE OF DISCHARGE: 07/12/2016 PRIMARY CARE PHYSICIAN: Unknown. FREIGHT AGENT: Dr. Roldan, Dr. Antoine Espinoza, Dr. Chisholm. DIAGNOSIS ON ADMISSION: 1. Acute renal failure. 2. Chronic kidney disease. DIAGNOSES ON DISCHARGE: 1. Acute renal failure. 2. Chronic kidney disease. 3. Chronic hypertension. 4. Medication nonadherence 5. Past tobacco. 6. Past alcohol. 7. Possible sleep apnea. 8. Thrombocytopenia. 9. False positive troponin. 10. Anemia. HOSPITAL COURSE: A 41-year-old gentleman admitted with acute renal failure, hypertensive urgency, e henrik, anasarca, hematuria, and dyspnea. The patient was treated conservatively and was requested to start dialysis. The patient refused to start dialysis and wants to think about as an outpatient. His acidosis has improved. He has no asterixis or uremia. 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 He is aware of the risk of progression. I would avoid PICC lines in nondominant hand. The patient to follow up with nephrology in 1 to 2 weeks. He was given instructions to check a BMP and watch his potassium. He was given instructions to do Kayexalate twice a week. The patient was seen by neurology for headaches, potentially in an abnormal CAT scan. All this turn ed out to be unremarkable. The patient can follow up with neurology as needed. The best issue is t reating with his risks with his blood pressure. There are issues of nonadherent. He has a high risk of stroke. I did reinforce this with the patie nt. The patient was seen by cardiology and he has been optimized from a cardiology standpoint. He needs aggressive risk factor modification. His EF is 40% and he has nonischemic cardiomyopathy due to blo od pressure. He does not need a stress test. DISCHARGE PLAN: Home. Follow up with primary in 1 week, nephrology this week, neurology and cardio logy as needed. DIET: Low salt, cholesterol. ACTIVITY: No driving. BARRIERS TO DISCHARGE: None. PENDING TESTS: None. FUNCTIONAL STATUS: The patient awake, alert, agreed to the plan of care. CONDITION: Stable. ALLERGIES: NO KNOWN DRUG ALLERGIES. REASON FOR ADMISSION: Renal failure. IMAGING STUDIES: MRA and MRI of brain shows patent intracranial arteries. Stress test showed no pe rfusion deficits. There is mild to moderate hypokinesis of the left ventricle, EF of about 37. Bra in MRI potentially partially empty sella turcica. Clinically, no evidence of end-stage disease. Re nal ultrasound shows bilateral echogenic kidneys consistent with medical renal disease, no obstructi on. CAT scan of the brain patchy periventricular subcortical white matter changes. Chest x-ray no acute process. LABORATORY DATA: White cell count of 11, hemoglobin and hematocrit of 11 and 34, platelets of 139. ESR only of 39, INR was 0.9. AMINA, ANCA negative. Myeloperoxidase protein 3. Sodium 137, potassiu m 3.5, chloride 95, bicarb 25, BUN , creatinine of 7.88, glucose of 140. LFTs okay. A1c of 4. 8. Troponin is high at 0.32 on admission. Cholesterol 160, LDL of 97, HDL 48, lipase of 117, trigl ycerides 95. DISCHARGE MEDICATIONS STOPPED MEDICATIONS: 1. Norvasc. 2. Clonidine. CONTINUED MEDICATIONS: None. ALTERED MEDICATIONS: None. NEW MEDICATIONS: 1. Tylenol as needed. 2. Ecotrin 81 daily. 3. Coreg 12.5 twice daily. 4. Hydralazine 50 three times daily. 5. Isosorbide mononitrate 30 mg daily. 6. Minoxidil 2.5 daily. 7. Nifedipine XL 90 daily. 8. Kayexalate 15 grams twice a week to be taken on every Tuesday and . Dictated By: ZACARIAS CARREON/NTS Conf#: [id number] DID#: [id number] CC: MIKE ROLDAN MD; ANTOINE ESPINOZA MD; JESUS CHISHOLM MD;*EndCC*
== END 2016-07-12 18:07 | disposition home or self-care (01) | DRG 682 ==
LOC: E/R 20:34 → MS4 23:09
PROVIDERS: ADMIT Internal Medicine; ATTEND Internal Medicine
DX: N17.9 Acute kidney failure, unspecified (principal); I21.4 Non-ST elevation (NSTEMI) myocardial infarction; I42.9 Cardiomyopathy, unspecified; M62.82 Rhabdomyolysis; H35.033 Hypertensive retinopathy, bilateral; D69.6 Thrombocytopenia, unspecified; I16.9 Hypertensive crisis, unspecified; N18.3 Chronic kidney disease, stage 3 (moderate); E87.6 Hypokalemia; Z91.14 Patient's other noncompliance with medication regimen; Z72.0 Tobacco use; I12.9 Hypertensive chronic kidney disease with stage 1 through stage 4 chronic kidney disease, or unspecified chronic kidney disease; D63.1 Anemia in chronic kidney disease; G47.33 Obstructive sleep apnea (adult) (pediatric); D64.9 Anemia, unspecified
CPT/HCPCS: 36415; 70450; 70544; 70549; 70551; 71010; 76775; 78452; 80048; 80053; 80061; 81003; 82550; 82553; 82570; 83036; 83690; 83735; 84100; 84484; 85025; 85610; 85651; 85730; 86021; 86038; 89190; 93005; 93017; 93306; 96374; 96375; A9500; A9505; J0360; J1644; J1940; J2060; J2270; J2785; J7030